=== PATIENT | male | born 1950 | race Caucasian/White ===

== ENCOUNTER 2021-08-30 22:07 | Emergency (ER) | payer OTHER ==
--- NOTE | 2021-08-30 22:25 | EDPHYS ---
Physician Documentation [facility] Name: Raphael Groves Sr Age: 71 yrs Sex: Male : 1950 Arrival Date: 08/30/2021 Time: 22:12 Bed 6 Private MD: ED Physician Edilson Sinclair HPI: 08/30 22:37 This 71 yrs old Male presents to ER via EMS with complaints of palpitations. ms3 22:25 71-year-old male with past medical history of hypertension, hypercholesterolemia, SVT ms3 presents via [facility] for increased heart rate and elevated blood pressure that began at 5 PM. EMS states administered 12 mg of adenosine IV with resolution of SVT. Patient denies pain. Patient denies nausea, vomiting. Patient states he has been dealing with SVT and had 4 episodes since June.. Historical: - Allergies: 22:22 No Known Allergies; aa9 - Home Meds: 22:22 prasugrel oral [Active]; Plavix Oral [Active]; meloxicam oral [Active]; atorvastatin aa9 oral [Active]; - PMHx: 22:24 Hypertensive disorder; Hypercholesterolemia; aa9 - PSHx: 22:24 Stented artery; aa9 - Immunization history:: Client reports having NOT received the Covid vaccine. - Social history:: Smoking status: Patient denies any tobacco usage or history of. ROS: 22:25 Constitutional: Negative for fever, and chills. Neck: Negative for injury, pain, and ms3 swelling. 22:25 Respiratory: Negative for shortness of breath, cough, wheezing, and pleuritic chest pain, Abdomen/GI: Negative for abdominal pain, nausea, vomiting, diarrhea, and constipation, MS/Extremity: Negative for injury and deformity, Skin: Negative for injury, rash, and discoloration, Psych: Negative for depression, anxiety, suicide ideation, homicidal ideation, and hallucinations. 22:25 Cardiovascular: Positive for palpitations. 22:25 All other systems are negative. Exam: 22:12 ECG was reviewed by the Attending Physician. ms3 22:25 Constitutional: This is a well developed, well nourished patient who is awake, alert, ms3 and in no acute distress. Eyes: Pupils equal round and reactive to light, extra-ocular motions intact. Lids and lashes normal. Conjunctiva and sclera are non-icteric and not injected. Periorbital areas with no swelling, redness, or edema. Neck: Trachea midline, no cervical lymphadenopathy. Supple, full range of motion without nuchal rigidity, or vertebral point tenderness. No Meningismus. Chest/axilla: Normal chest wall appearance and motion. Nontender with no deformity. Cardiovascular: Regular rate and rhythm with a normal S1 and S2. No gallops, murmurs, or rubs. Normal PMI, no JVD. No pulse deficits. Respiratory: Lungs have equal breath sounds bilaterally, clear to auscultation and percussion. No rales, rhonchi or wheezes noted. No increased work of breathing, no retractions or nasal flaring. Abdomen/GI: Soft, non-tender, with normal bowel sounds. No distension or tympany. No guarding or rebound. No evidence of tenderness throughout. Skin: Warm, dry with normal turgor. Normal color with no rashes, no lesions, and no evidence of cellulitis. MS/ Extremity: Pulses equal, no cyanosis. Neurovascular intact. Full, normal range of motion. Psych: Awake, alert, with orientation to person, place and time. Behavior, mood, and affect are within normal limits. Vital Signs: 22:18 BP 162 / 95; Pulse 88; Resp 26; Temp 97.9; Pulse Ox 100% on R/A; Weight 65.77 kg; aa9 Height 5 ft. 8 in. (172.72 cm); Pain 0/10; 22:26 BP 162 / 95; Pulse 88; Resp 26 S; Pulse Ox 100% on R/A; aa9 22:18 Body Mass Index 22.05 (65.77 kg, 172.72 cm) aa9 MDM: 22:13 Patient medically screened. ms3 22:25 Differential diagnosis: arrythmia. Data reviewed: vital signs, nurses notes, EKG, and ms3 as a result, I will discharge patient. Data interpreted: nurse monitoring: rate is 86 beats/min, rhythm is normal sinus rhythm, with no ectopy, Interpretation: normal rate, normal rhythm. Test interpretation: by ED physician or midlevel provider: ECG. Counseling: I had a detailed discussion with the patient and/or guardian regarding: the historical points, exam findings, and any diagnostic results supporting the discharge/admit diagnosis, the need for outpatient follow up, to return to the emergency department if symptoms worsen or persist or if there are any questions or concerns that arise at home. Refusal of service: The patient/guardian displays adequate decision making capability and despite a detailed discussion of alternatives, benefits, risks, and consequences refuses: Admission to the hospital for further work-up and treatment, all lab tests, all X-rays. ED course: On reevaluation patient is improved, alert and oriented x4, in no apparent distress, nontoxic-appearing, speaking full sentences, ambulatory in emergency department. Discussed labs, CXR, observation and patient declines.. 08/30 22:14 Order name: EKG; Complete Time: 22:14 ms3 08/30 22:14 Order name: EKG - Nurse/Tech; Complete Time: : ms3 EC:12 Rate is 86 beats/min. Rhythm is regular. QRS Maljamar is Normal. MO interval is normal. ms3 Clinical impression: NSR w/ Non-specific ST/T Changes. Interpreted by me. Reviewed by me. Administered Medications: No medications were administered Disposition Summary: 08/30/21 22:25 Discharge Ordered Location: Home ms3 Condition: Stable ms3 Diagnosis - Supraventricular tachycardia ms3 Followup: ms3 - With: Private Physician - When: 1 - 2 days - Reason: Re-evaluation by your physician Discharge Instructions: - Discharge Summary Sheet ms3 - Chemical Cardioversion ms3 - Supraventricular Tachycardia, Adult, [id number] ms3 Forms: - Medication Reconciliation Form ms3 - Thank You Letter ms3 - Antibiotic Education ms3 - Prescription Opioid Use ms3 Signatures: Edilson Sinclair DO DO ms3 Nayla Phipps, RN RN aa9
--- NOTE | 2021-08-30 22:25 | ER ---
Nurse's Notes [facility] Name: Raphael Groves Sr Age: 71 yrs Sex: Male : 1950 Arrival Date: 08/30/2021 Time: 22:12 Bed 6 Private MD: Diagnosis: Supraventricular tachycardia Presentation: 08/30 22:18 Chief complaint: EMS states: heart palpitations that began at 4pm today. Coronavirus aa9 screen: At this time, the client does not indicate any symptoms associated with coronavirus-19. Coronavirus screen: Vaccine status: Patient reports being unvaccinated. Ebola Screen: No symptoms or risks identified at this time. Initial Sepsis Screen: Does the patient meet any 2 criteria? No. Patient's initial sepsis screen is negative. Does the patient have a suspected source of infection? No. Patient's initial sepsis screen is negative. Risk Assessment: Do you want to hurt yourself or someone else? Patient reports no desire to harm self or others. Onset of symptoms was August 30, 2021 at 16:00. Care prior to arrival: Medication(s) given: Adenosine, 12 mg, IV initiated. 18 GA, in the left antecubital area. 22:18 Method Of Arrival: EMS: [facility] aa9 22:18 Acuity: MAHESH 3 aa9 Triage Assessment: 22:26 General: Appears in no apparent distress. comfortable, Behavior is calm, cooperative. aa9 Pain: Denies pain. Historical: - Allergies: 22:22 No Known Allergies; aa9 - Home Meds: 22:22 prasugrel oral [Active]; Plavix Oral [Active]; meloxicam oral [Active]; atorvastatin aa9 oral [Active]; - PMHx: 22:24 Hypertensive disorder; Hypercholesterolemia; aa9 - PSHx: 22:24 Stented artery; aa9 - Immunization history:: Client reports having NOT received the Covid vaccine. - Social history:: Smoking status: Patient denies any tobacco usage or history of. Screenin:25 Abuse screen: Denies threats or abuse. Denies injuries from another. Nutritional aa9 screening: No deficits noted. Tuberculosis screening: No symptoms or risk factors identified. Fall Risk None identified. Vital Signs: 22:18 BP 162 / 95; Pulse 88; Resp 26; Temp 97.9; Pulse Ox 100% on R/A; Weight 65.77 kg; aa9 Height 5 ft. 8 in. (172.72 cm); Pain 0/10; 22:26 BP 162 / 95; Pulse 88; Resp 26 S; Pulse Ox 100% on R/A; aa9 22:18 Body Mass Index 22.05 (65.77 kg, 172.72 cm) aa9 ED Course: 22:12 Patient arrived in ED. ds4 22:13 Edilson Sinclair DO is Attending Physician. ms3 22:22 Triage completed. aa9 22:25 Patient has correct armband on for positive identification. aa9 22:26 Arm band placed on. aa9 22:29 Nayla Phipps, RN is Primary Nurse. aa9 22:46 No provider procedures requiring assistance completed. IV discontinued, intact, aa9 bleeding controlled, No redness/swelling at site. Pressure dressing applied. Administered Medications: No medications were administered Medication: 22:47 VIS not applicable for this client. aa9 Outcome: 22:25 Discharge ordered by . ms3 22:46 Discharged to home ambulatory. aa9 22:46 Condition: stable 22:46 Discharge instructions given to patient, Instructed on discharge instructions, follow up and referral plans. Demonstrated understanding of instructions, follow-up care. 22:53 Patient left the ED. aa9 Signatures: Franck Johnson ds4 Edilson Sinclair DO DO ms3 Nayla Phipps, RN RN aa9
[2021-08-30 23:45] VITALS: BP 162/95; TEMP 97.9; O2SAT 100
--- NOTE | 2021-08-31 09:26 | EKG ---
Test Date: 2021-08-30 Test Time: 22:12:50 Social Science Teacher: KATLYN MEASUREMENT RESULTS: Intervals: Rate: 86 SC: 142 QRSD: 82 QT: 402 QTc: 481 [place]: P: 64 SC: 142 QRS: -57 T: 112 INTERPRETIVE STATEMENTS: Sinus rhythm with occasional premature ventricular complexes Possible Left atrial enlargement Left anterior fascicular block Left ventricular hypertrophy Cannot rule out Septal infarct, age undetermined Abnormal ECG No previous ECG available for comparison Electronically Signed On 08-31-21 09:24:40 CDT by Anatoly Kumar
== END 2021-08-30 22:53 | disposition home or self-care (01) ==
LOC: ER 22:07
DX: I47.1 Supraventricular tachycardia (principal); I10 Essential (primary) hypertension; E78.00 Pure hypercholesterolemia, unspecified
CPT/HCPCS: 93005; 99283

== ENCOUNTER 2022-11-30 20:08 | Emergency (ER) | payer OTHER ==
--- OUTSIDE RECORDS SUMMARY | 2022-11-30 20:12 | XMS REPORT | Continuity of Care Document ---
:1950 Author Organization [facility] t Address [address]. [place]. [address] [place] [address] Care Team Providers Name Role Phone Evon Dempsey MD Primary Care Physician Maximilian Adams Attending Clinician Unavailable Dameon Quintero MD Attending Clinician MARIANGEL BATISTA Attending Clinician Unavailable Caitlin Real Attending Clinician Unavailable Provider, Unknown Attending Clinician Unavailable MD DAMEON QUINTERO Attending Clinician Unavailable Kemal Car MA Attending Clinician Unavailable Jayna Stratton Admitting Clinician Unavailable DAMEON QUINTERO Admitting Clinician Unavailable MD DAMEON QUINTERO Admitting Clinician Unavailable Payers Payer Name Policy Type Policy Number Effective Date Expiration Date S ource Problems Condition Condition Condition Status Onset Resolution Last Treating Co mments Source Name Details Category Date Date Treatment Clinician Date Abnormal Abnormal Disease Active [facility] EKG EKG 08-12 00:00: Hospita 00 l Angina Angina Disease Active [facility] pectoris pectoris 08-12 00:00: Hospita 00 l Essential Essential Disease Active Met [facility] hypertensi hypertensi 08-12 st on on 00:00: Hospita 00 l Allergies, Adverse Reactions, Alerts Allergy Allergy Status Severity Reaction(s) Onset Inactive Treating Comm ents Source Name Type Date Date Clinician No Known DA Active U [facility] No Known DA Active U 2016-0 [facility]ergie 8-18 [facility] Family History Family Member Diagnosis Comments Start Date Stop Date Source Natural mother Heart block [facility] Social History Social Habit Start Date Stop Date Quantity Comments Source [facility] Alcohol intake 2021-09-18 2021-09-18 Current drinker [facility] 00:00:00 00:00:00 of alcohol Hospital (finding) History of Social 2021-09-18 2021-09-[address] function 00:00:00 00:00:00 Hospital Tobacco use and 2020-08-12 2020-08-12 User of [facility] exposure 00:00:00 00:00:00 smokeless Hospital tobacco Sex Ass[birth year] [facility] 00:00:00 00:00:00 Hospital Smoking Status Start Date Stop Date Source Never smoked tobacco [facility] Medications Ordered Filled Start Stop Current Ordering Indication Dosage Frequency Signature Comments Components Source Medication Medication Date Date Medication? Clinician (SIG) Name Name metoprolol 2021-02 Yes TAKE ONE Met hodi tartrate 1-[address] (LOPRESSOR) 00:00: MOUTH Hospi ta 50 mg 00 TWICE A l tablet DAY metoprolol 2021-02 Yes TAKE ONE Met [facility]odi tartrate 1-[address] (LOPRESSOR) 00:00: MOUTH Hospi ta 50 mg 00 TWICE A l tablet DAY nitroglycer 2021-02 Yes DISSOLVE 1 [facility] in 0-[address] (NITROSTAT) 00:00: TONGUE FOR Hospita 0.4 MG SL 00 CHEST PAIN l tablet - IF PAIN REMAINS AFTER 5 MIN, CALL 911 AND REPEAT DOSE. MAX 3 TABS IN 15 MINUTES nitroglycer 2021-02 Yes DISSOLVE 1 Method[facility] in 0-[address] (NITROSTAT) 00:00: TONGUE FOR Hospita 0.4 MG SL 00 CHEST PAIN l tablet - IF PAIN REMAINS AFTER 5 MIN, CALL 911 AND REPEAT DOSE. MAX 3 TABS IN 15 MINUTES aspirin Yes 81mg QD Take 1 [facility] (Enteric 8-12 tablet (81 st Coated 00:00: mg total) Hospit a Aspirin) 81 00 by mouth l MG enteric daily. coated tablet aspirin Yes 81mg QD Take 1 [facility] (Enteric - tablet (81 st Coated 00:00: mg total) Hospit a Aspirin) 81 00 by mouth l MG enteric daily. coated tablet atorvastati 2022- No 40mg QD Take 1 Met hodi n (LIPITOR) 09-18 tablet (40 s t 40 mg 00:00: 04:59 mg total) Hospit a tablet 00 :00 by mouth l daily. atorvastati 2022- No 40mg QD Take 1 Met hodi n (LIPITOR) 09-18 tablet (40 s t 40 mg 00:00: 04:59 mg total) Hospit a tablet 00 :00 by mouth l daily. metoprolol 2021- No 50mg Q.5D Take 1 Meth bebo tartrate 09-08-10 tablet (50 st (LOPRESSOR) 00:00: 00:00 mg total) Hospita 50 mg 00 :00 by mouth 2 l tablet (two) times a day. metoprolol No 50mg Q.5D Take 1 Meth bebo tartrate 09-0810 tablet (50 st (LOPRESSOR) 00:00: 00:00 mg total) Hospita 50 mg 00 :00 by mouth 2 l tablet (two) times a day. aspirin 2020- No 81mg QD Take 1 [facility] (ECOTRIN) 09-10 tablet (81 st 81 MG 00:00: 04:59 mg total) Hospit a enteric 00 :00 by mouth l coated daily for tablet 30 days. prasugreL 2020- No 10mg QD Take 1 Metho di (EFFIENT) 09-10 tablet (10 st 10 mg 00:00: 04:59 mg total) Hospit a tablet 00 :00 by mouth l daily for 30 days. prasugreL 2020- No 10mg QD Take 1 Metho di (EFFIENT) 08-15 tablet (10 st 10 mg 00:00: 00:00 mg total) Hospit a tablet 00 :00 by mouth l daily for 30 days. aspirin 2020- No 81mg QD Take 1 [facility] (ECOTRIN) 08-14 tablet (81 st 81 MG 16:25: 00:00 mg total) Hospit a enteric 39 :00 by mouth l coated daily. tablet atorvastati No 80mg QD Take 1 Met hodi n (LIPITOR) 08-14 tablet (80 s t 80 MG 00:00: 04:59 mg total) Hospit a tablet 00 :00 by mouth l nightly for 30 days. amLODIPine No 5mg QD Take 1 Meth bebo (NORVASC) 5 08-14 tablet (5 st mg tablet 00:00: 04:59 mg total) Ho spita 00 :00 by mouth l daily for 30 days. aspirin No 81mg QD Take 1 [facility] (ECOTRIN) 08-14 tablet (81 st 81 MG 00:00: 00:00 mg total) Hospit a enteric 00 :00 by mouth l coated daily for tablet 30 days. nitroglycer 2021- No 1 under Me thodi in 08-[address] (NITROSTAT) 00:00: 00:00 as needed Hospita 0.4 MG SL 00 :00 for l tablet angina, may repeat q5mins for up three doses metoprolol 2021- No 50mg Q.5D Take 1 Meth bebo tartrate 08-12 tablet (50 st (LOPRESSOR) 00:00: 04:59 mg total) Hospita 50 mg 00 :00 by mouth 2 l tablet (two) times a day. nitroglycer 2021- No 1 under Me thodi in 08-[address] (NITROSTAT) 00:00: 04:59 as needed Hospita 0.4 MG SL 00 :00 for l tablet angina, may repeat q5mins for up three doses clopidogreL No 75mg QD Take 1 Met hodi (PLAVIX) 75 08-12 tablet (75 s t mg tablet 00:00: 00:00 mg total) Ho spita 00 :00 by mouth l daily. Vital Signs Vital Name Observation Time Observation Value Comments Source Heart rate 2020-09-10 20:30:00 62 /min [facility] Res[facility] rate 2020-09-10 20:30:00 26 /min [facility] Oxygen saturation in 2020-09-10 20:30:00 98 /min [facility] Arterial blood by Pulse oximetry Systolic blood 2020-09-10 20:15:00 169 mm[Hg] [facility] pressure Diastolic blood 2020-09-10 20:15:00 82 mm[Hg] [facility] pressure Body temperature 2020-09-10 13:34:00 35.72 Pascale [facility] Body height 2020-09-10 13:34:00 171.5 cm [facility] Body weight 2020-09-10 13:34:00 77.474 kg [facility] BMI 2020-09-10 13:34:00 26.36 kg/m2 [facility] Procedures Procedure Date / Time Performing Clinician Source Performed ECG PRE/POST OP 2020-09-10 16:40:08 Dameon Quintero spital CV PCI 2020-09-10 16:09:08 Dameon Quintero spital ACTIVATED CLOTTING TIME 2020-09-10 15:49:00 Dameon Quintero [facility] COVID-19 QUALITATIVE 2020-09-05 14:14:00 [facility] HC COMPLETE BLD COUNT 2020-09-05 14:14:00 Dameon Quintero [facility] W/AUTO DIFF COMPREHENSIVE METABOLIC 2020-09-05 14:14:00 Dameon Quintero [facility] PANEL PROTHROMBIN TIME WITH INR 2020-09-05 14:14:00 Dameon Quintero [facility] ESTIMATED GFR 2020-09-05 14:14:00 Dameon Quintero spital POC GLUCOSE 2020-08-14 12:54:00 Dameon Quintero spital POC GLUCOSE 2020-08-14 04:34:00 Dameon Quintero spital ECG 12-LEAD 2020-08-14 01:05:22 Dameon Quintero spital IVUS CORONARY 2020-08-14 00:36:29 Dameon Quintero spital ACTIVATED CLOTTING TIME 2020-08-13 23:56:00 Dameon Quintero [facility] ECG 12-LEAD 2020-08-12 19:39:47 Damoen Quintero spital COVID-19 QUALITATIVE 2020-08-12 19:27:00 Dameon Quintero [facility] RT-PCR PROTHROMBIN TIME WITH INR 2020-08-12 19:27:00 Dameon Quintero [facility] COMPREHENSIVE METABOLIC 2020-08-12 19:27:00 Dameon Quintero [facility] PANEL HC COMPLETE BLD COUNT 2020-08-12 19:27:00 Dameon Quintero [facility] W/AUTO DIFF PARTIAL THROMBOPLASTIN 2020-08-12 19:27:00 Dameon Quintero [facility] TIME (PTT) ESTIMATED GFR 2020-08-12 19:27:00 Dameon Quintero spital ECG 12-LEAD 2020-08-12 14:42:09 [facility] Care Planned Activity Planned Date Details Comments Source Future Scheduled 2022-11-24 Screening for [facility] Test 05:29:36 malignant neoplasm of colon (procedure) [code = 096892727] Future Scheduled 2022-11-24 Screening for [facility] Test 05:29:36 malignant neoplasm of colon (procedure) [code = 681755010] Future Scheduled 2022-11-24 Screening for [facility] Test 05:29:36 malignant neoplasm of colon (procedure) [code = 273801007] Future Scheduled 2022-11-24 COVID-19 VACCINE (#1) [facility] Test 05:29:36 [code = COVID-19 VACCINE (#1)] Future Scheduled 2022-11-24 65+ PNEUMOCOCCAL [facility] Test 05:29:36 VACCINE (1 - PCV) [code = 65+ PNEUMOCOCCAL VACCINE (1 - PCV)] Future Scheduled 2022-11-24 Hepatitis C screening [facility] Test 05:29:36 (procedure) [code = 609706663] Future Scheduled 2022-11-24 Screening for [facility] Test 05:29:36 malignant neoplasm of colon (procedure) [code = 988890636] Future Scheduled 2022-11-24 Screening for [facility] Test 05:29:36 malignant neoplasm of colon (procedure) [code = 030527033] Future Scheduled 2022-11-24 SHINGLES VACCINES (1 Met [facility] Test 05:29:36 of 2) [code = SHINGLES VACCINES (1 of 2)] Future Scheduled 2022-11-24 RSV VACCINES > 60 YR Met [facility] Test 05:29:36 (1 - 1-dose 60+ series) [code = RSV VACCINES > 60 YR (1 - 1-dose 60+ series)] Future Scheduled 2022-11-24 INFLUENZA VACCINE (#1) [facility] Test 05:29:36 [code = INFLUENZA VACCINE (#1)] Future Scheduled 2022-10-08 Screening for [facility] Test 07:26:27 malignant neoplasm of colon (procedure) [code = 456281693] Future Scheduled 2022-10-08 Screening for [facility] Test 07:26:27 malignant neoplasm of colon (procedure) [code = 660744827] Future Scheduled 2022-10-08 Screening for [facility] Test 07:26:27 malignant neoplasm of colon (procedure) [code = 387408364] Future Scheduled 2022-10-08 COVID-19 VACCINE (#1) [facility] Test 07:26:27 [code = COVID-19 VACCINE (#1)] Future Scheduled 2022-10-08 65+ PNEUMOCOCCAL [facility] Test 07:26:27 VACCINE (1 - PCV) [code = 65+ PNEUMOCOCCAL VACCINE (1 - PCV)] Future Scheduled 2022-10-08 Hepatitis C screening [facility] Test 07:26:27 (procedure) [code = 692885457] Future Scheduled 2022-10-08 Screening for [facility] Test 07:26:27 malignant neoplasm of colon (procedure) [code = 323313800] Future Scheduled 2022-10-08 Screening for [facility] Test 07:26:27 malignant neoplasm of colon (procedure) [code = 709183043] Future Scheduled 2022-10-08 SHINGLES VACCINES (1 Met [facility] Test 07:26:27 of 2) [code = SHINGLES VACCINES (1 of 2)] Future Scheduled 2022-10-08 INFLUENZA VACCINE (#1) [facility] Test 07:26:27 [code = INFLUENZA VACCINE (#1)] Future Scheduled 2021-01-28 COVID-19 VACCINE (1) [facility] Test 03:32:40 [code = COVID-19 VACCINE (1)] Future Scheduled 2021-01-28 65+ [facility]UMOCOCCAL [facility] Test 03:32:40 VACCINE (1 of 2 - PPSV23) [code = 65+ PNEUMOCOCCAL VACCINE (1 of 2 - PPSV23)] Future Scheduled 2021-01-28 Hepatitis C screening [facility] Test 03:32:40 (procedure) [code = 345317732] Future Scheduled 2021-01-28 COLONOSCOPY SCREENING [facility] Test 03:32:40 [code = COLONOSCOPY SCREENING] Future Scheduled 2021-01-28 SHINGLES VACCINES (#1) [facility] Test 03:32:40 [code = SHINGLES VACCINES (#1)] Future Scheduled 2021-01-28 INFLUENZA VACCINE [facility] Test 03:32:40 [code = INFLUENZA VACCINE] Encounters Start End Encounter Admission Attending Care Care Encounter Source Date/Time Date/Time Type Type Clinicians Facility Department ID 2021-09-25 Outpatient Angie, PULSE PULSE [id number] Pulse 08:45:02 Maximilian 2021-09-24 Outpatient PULSE PULSE [id number] Pulse 14:08:01 2021-09-16 Outpatient PULSE PULSE [id number] Pulse 09:41:02 2021-09-11 Outpatient PULSE PULSE [id number] Pulse 09:11:03 2021-12-17 2021-12-17 Refmary Quintero, 1.2.840.1 [id number] Methodi 00:00:00 00:00:00 Dameon Marshall [address]603.1.[address] 3.430.2.7 Hospit a .3.703644 l .8 2021-12-17 2021-12-17 Bernardo Quintero, 1.2.840.1 [id number] Methodi 00:00:00 00:00:00 Dameon Marshall [address]14.1.[address] 3.430.2.7 Hospit a .3.951699 l .8 2021-11-14 2021-11-14 Bernardo Quintero 1.2.840.1 [id number] Methodi 00:00:00 00:00:00 Dameon R[address]388.1.[address] 3.430.2.7 Hospit a .3.120435 l .8 2021-09-18 2021-09-18 Emergency E LYNNE, MHBL MHBL 7506 [facility]BL 17:35:00 22:45:00 [facility] 2021-09-18 2021-09-18 Outpatient [facility] [id number] [address] [place] [address] 00:00:00 00:00:00 DAMEON [address] 2021-06-23 2021-06-23 Inpatient EM Farhan, [facility] [id number] [facility] 14:41:00 18:23:[id number] [facility] 2021-06-23 2021-06-23 Inpatient EM Farhan, [facility] [id number] [facility] 14:41:00 18:23:[address] [facility] 2020-09-10 2020-09-10 [facility] 1.2.840.1 [id number] Methodi 08:18:00 15:50:00 Encounter Dameon R. 47989.1.[address] 3.430.2.7 Hospit a .3.084299 l .8 2020-09-10 2020-09-10 [facility] 1.2.840.1 [id number] Methodi 09:20:00 11:10:00 Dameon R. 41245.1.[address] 3.430.2.7 Hospit a .3.105184 l .8 2020-09-09 2020-09-09 Documentat [facility], 1.2.840.1 [id number] Methodi 00:00:00 00:00:00 ion Unknown 19978.1.[address] 3.430.2.7 Hospit a .3.285286 l .8 2020-09-05 2020-09-05 [facility] Doris 1.2.840.1 [id number] Methodi 09:05:22 09:10:22 Dameon R. [address]59.1.[address] 3.430.2.7 Hospit a .3.813301 l .8 2020-09-05 2020-09-05 Travel 1.2.840.1 1.2.335.766 [id number] Methodi 00:00:00 00:00:[address] 3.430.2.7 0.2.7.3.698 Ho spita .3.283341 084.8 l .8 2020-08-29 2020-08-29 [place] Doris 1.2.840.1 [id number] [id number] Methodi 00:00:00 00:00:00 Dameon Marshall [address]245.1.[address] 3.430.2.7 Hospit a .3.441611 l .8 2020-08-20 2020-08-20 Orders Kemal Car 1.2.840.1 [id number] [id number] Methodi 00:00:00 00:00:[address] 3.430.2.7 Hospit a .3.171778 l .8 2020-08-18 2020-08-18 Travel 1.2.840.1 1.2.550.596 6845 [id number] Methodi 00:00:00 00:00:[address] 3.430.2.7 0.2.7.3.698 Ho spita .3.704942 084.8 l .8 2020-08-13 2020-08-14 [facility] Doris, 1.2.840.1 [id number] Methodi 12:09:00 17:21:00 Encounter Dameon Marshall 96448.1.[address] 3.430.2.7 Hospit a .3.975693 l .8 2020-08-13 2020-08-13 [facility] Doris 1.2.840.1 [id number] 0899 Methodi 17:57:00 19:17:00 Dameon Marshall [address]51.1.[address] 3.430.2.7 Hospit a .3.785552 l .8 2020-08-13 2020-08-13 Travel 1.2.840.1 1.2.679.420 [id number] [id number] Methodi 00:00:00 00:00:[address] 3.430.2.7 0.2.7.3.698 Ho spita .3.611516 084.8 l .8 2020-08-12 2020-08-12 Lab Doris, 1.2.840.1 [id number] Methodi 14:10:49 14:15:49 Dameon Marshall [address]361.1.[address] 3.430.2.7 Hospit a .3.433570 l .8 2020-08-12 2020-08-12 Luis Daniel Quintero 1.2.840.1 [id number] 3530 Methodi 09:22:31 13:35:05 Visit Dameon Marshall 75608.1.[address] 3.430.2.7 Hospit a .3.466807 l .8 2020-08-12 2020-08-12 Orders Kemal Car 1.2.840.1 [id number] [id number] Methodi 00:00:00 00:00:[address] 3.430.2.7 Hospit a .3.790572 l .8 2020-08-12 2020-08-12 Travel 1.2.840.1 1.2.937.471 7070 [id number] Methodi 00:00:00 00:00:[address] 3.430.2.7 0.2.7.3.698 Ho spita .3.698002 084.8 l .8 2020-08-04 2020-08-04 Travel 1.2.840.1 1.2.315.578 2033 [id number] Methodi 00:00:00 00:00:[address] 3.430.2.7 0.2.7.3.698 Ho spita .3.666393 084.8 l .8 2020-03-10 2020-03-10 Outpatient [facility] PDPFFOS XXM [facility] 00:00:00 00:00:00 [facility]-[id number] Results Test Description Test Time Test Comments Results Result Comments Source LIPID PROFILE (CORONARY RISK) 2021-06-23 18:21:00 Test Item Value Reference Range Interpretation Comme nts TRIGLYCERIDES (test code = TRIG) 96 mg/dL 20-150 N CHOLESTEROL (test code = CHOL) 127 mg/dL 0-200 N CHOLESTEROL/HDL RATIO (test code 2.0 RATIO 0-4.9 N RISK ASSOCIATED WITH CHOL/HDL = CHOLHDL) RATIOS: Risk Ma le Female1/2 AVERAGE 3.43 3. 27AVERAGE 4.97 4.442X AVERAGE 9.55 7.053X AVERAGE 23.39 11.04 REFERENCE VALUE IS RELATE D TO RISK LEVELS ASRECOMMENDED B Y THE BETTYE. HEART, LUNG, AND BLOOD INST. HDL CHOLESTEROL (test code = HDL) 46 mg/dL 40-60 N LIPOPROTEIN LDL (test code = LDL) 74 mg/dL 100-129 L Refer ence Interval: mg/dL mmol/L--------- -Optimal <100 < 2.6Near/above optimal 100-129 2.6-3.3Borderli ne High 130-159 3.4-4.1High 160 -189 4.1-4.9Very High >=190 >=4 .9========= This LDL result is a direct measurement.=== ====== THYROID PROFILE [id number] 18:21:00 Test Item Value Reference Range Interpretation Comments T3 UPTAKE (test code = 35.0 % 30.0-40.0 N T3UP) T4 (THYROXINE) (test 6.3 ug/dL 4.5-13.9 N code = T4) T7 (FREE THYROXINE 2.20 FTI 1.3-5.1 N INDEX) (test code = T7) THYROID STIMULATING 0.888 uIU/mL 0.36-3.74 N TSH REFE RENCE HORMONE (test code = RANGES: EUTHYROID: TSH) 0.35 - 4.3 mIU/ mL HYPO : > 5.5 mI U/mL HYPER : < 0.35 mIU/mL [id number] 18:16:00 Test Item Value Reference Range Interpretation Comments TROPONIN-HS (test 66.760 pg/mL 0-45 H CAUTION: U nits of the code = TROPI) current test m ethodology (pg/mL)differ f rom the prior test meth odology (ng/mL) by a fa ctorof 1000. COMMENTS TO WELL SERVICING RIG OPERATOR: COLLECT 3 HOURS AFTER PREVIOUS SAMPLEBASIC METABOLIC [id number] 14:21:00 Test Item Value Reference Range Interpretation Comments SODIUM (test code = 140 mmol/L 136-145 N NA) POTASSIUM (test code 4.1 mmol/L 3.5-5.1 N = K) CHLORIDE (test code 106.0 mmol/L 98-107 N = CL) CARBON DIOXIDE (test 25.0 mmol/L 21-32 N code = CO2) ANION GAP (test code 13.1 10-20 N = GAP) GLUCOSE (test code = 105 mg/dL 74-106 N GLU) BLOOD UREA NITROGEN 20 mg/dL 7-18 H (test code = BUN) GLOMERULAR 55 mL/min See_Comment Estimated GFR b y FILTRATION RATE using Modifi ed MDRD (test code = GFR) formula.Ch ronic kidney disease is defined as eith er kidney damageor GFR <60 mL/min/1.73 m2 for >3 months. [Automated mess age] The system [employer] generated this result transmitted ref erence range: >=60. Th e reference range was not used to int erpret this result as normal/abnormal . CREATININE (test 1.30 mg/dL 0.7-1.3 N code = CREAT) BUN/CREATININE RATIO 14.9 10-20 N (test code = BUN/CREA) CALCIUM (test code = 9.2 mg/dL 8.5-10.1 N CA) [id number] 14:21:00 Test Item Value Reference Range Interpretation Comments TROPONIN-HS (test 44.250 pg/mL 0-45 N CAUTION: U nits of the code = TROPI) current test m ethodology (pg/mL)differ f rom the prior test meth odology (ng/mL) by a fa ctorof 1000. CBC W/O [id number] 14:03:00 Test Item Value Reference Range Interpretation Comments WHITE BLOOD CELL (test code = 9.1 K/mm3 4.5-12.5 N WBC) RED BLOOD CELL (test code = 5.05 mill/mm3 4.0-5.8 N RBC) HEMOGLOBIN (test code = HGB) 16.1 gram/dL 13.0-17.5 N HEMATOCRIT (test code = HCT) 46.6 % 42.0-52.0 N MEAN CELL VOLUME (test code = 92.3 fL 80-98 N MCV) MEAN CELL HGB (test code = MCH) 31.9 picogram 27.0-33.0 N MEAN CELL HGB CONCETRATION 34.5 gram/dL 33.0-36.0 N (test code = MCHC) RED CELL DISTRIBUTION WIDTH 13.5 % 11.6-16.2 N (test code = RDW) PLATELET COUNT (test code = 243 K/mm3 150-450 N PLT) MEAN PLATELET VOLUME (test code 10.4 fL 6.7-11.0 N = MPV) - XR CHEST 1 [id number] 12:59:00 [facility]Name: PAIGE FERRO : 1950 Sex: M FAX: Fernando Miller MD [phone] [place]: St: REG Name: PAIGE FERRO [facility] : 1950 Age/S: 71/M [address] [facility] Unit #: [id number] Loc: [place] [address] Phys: Fernando Miller MD Acct: [id number] Dis Date: Status: REG ER PHONE #: [phone] Exam Date: 06/23/2021 1305 FAX #: [phone] Reason: CHEST PAIN EXAMS: CPT CODE: [id number] XR CHEST 1 V 45576 HISTORY: Chest pain. COMPARISON: None available. Location: [facility]. No acute infiltrates, effusion or congestion is noted. Calcified granuloma in the right midlung. Mild cardiomegaly. Levoscoliosis. IMPRESSION: No acute infiltrates, effusion or congestion. at 9066 Reported and signed by: Alexey Boone M.D. CC: Fernando Miller MD Technologist: Delicia Gallardo RT(R) Trnscrd Date/Time/By: 06/23/2021 (8307) : By: [email or web address] Orig Print D/T: S: 06/23/2021 (6676) PAGE 1 Signed ReportECG Pre/Post [id number] 05:34:06 Test Item Value Reference Range Interpretation Comments Ventricular rate (test code = 253) Atrial rate (test code = 255) [place] interval (test code = 266) QRSD interval (test code = 260) QT interval (test code = 264) QTC interval (test code = 265) P axis 1 (test code = 267) QRS axis 1 (test code = 268) T wave axis (test code = 270) EKG impression (test Sinus bradycardia with code = 273) premature atrial complexes-Left axis deviation-Septal infarct , age undetermined-T wave abnormality, consider anterolateral ischemia-Abnormal ECG-In automated comparison with ECG of 13-AUG-2020 20:05,-Septal infarct is now present-T wave inversion now evident in Anterolateral leads- [facility] [id number] 15:55:19 Test Item Value Reference Range Interpretation Comments Activated clotting time See_Comment H Oper ator Name: (test code = 5298) Le Mathis ID: [id number] [Autom ated message] The sy stem which generated this result transmit trudy reference range : 96 - 152 sec. The re ference range was not u sed to interpret this result as normal/abnor mal. Lab Interpretation Abnormal (test code = 01867-8) [facility] qualitative [id number] 19:39:56 Test Item Value Reference Range Interpretation Comments Interpretation (test Negative results do code = 4350409) not preclude 2019-nCoV infection and should not be used as the sole basis for treatment or other patient management decisions. Negative results must be combined with clinical observations, patient history, and epidemiological information. COVID-19 qualitative Not-Detected Not-Detected RT-PCR result (test code = 31375-9) COVID-19 qualitative See link below for C ase Number: RT-PCR (test code = PDF Lab Report [id number]) [facility] [Presence] in Respiratory specimen by PERLA with probe [id number] 14:39:02 Test Item Value Reference Range Interpretation Comments SARS-CoV-2 (COVID-19) RNA Not detected Not-Detected [Presence] in Respiratory specimen by PERLA with probe detection (test code = 48043-7) Whether patient is employed in a healthcare setting (test code = 87458-5) Whether the patient has symptoms related to condition of interest (test code = 84643-2) Patient was hospitalized because of this condition (test code = 05324-1) Whether the patient was admitted to intensive care unit (ICU) for condition of interest (test code = 89896-9) Whether patient resides in a congregate care setting (test code = 60460-4) ODEN LUIS FELIPE [facility] [place] [place] [id number] 12:55:52 Test Item Value Reference Range Interpretation Comments POC glucose (test code 109 mg/dL 65-99 H [employer] lewis Name: = [id number]) Giorgio Sanches ID: [id number] able: No Action Neede d Lab Interpretation Abnormal (test code = 83939-8) [facility] 12 [id number] 01:34:54 Test Item Value Reference Range Interpretation Comments Ventricular rate (test code = 253) Atrial rate (test code = 255) [place] interval (test code = 266) QRSD interval (test code = 260) QT interval (test code = 264) QTC interval (test code = 265) P axis 1 (test code = 267) QRS axis 1 (test code = 268) T wave axis (test code = 270) EKG impression (test Sinus bradycardia with code = 273) premature supraventricular complexes-Left axis deviation-Moderate voltage criteria for LVH, may be normal variant-Prolonged QT-Abnormal ECG-In automated comparison with ECG of 12-AUG-2020 14:39,-premature supraventricular complexes are now present- Bahai [id number]-[id number] (COVID-19) RNA [Presence] in Respiratory specimen by PERLA with probe [id number] 20:54:00 Test Item Value Reference Range Interpretation Comments SARS-CoV-2 (COVID-19) RNA Not detected Not-Detected [Presence] in Respiratory specimen by PERLA with probe detection (test code = 00553-9) Whether patient is employed in a healthcare setting (test code = 08612-4) Whether the patient has symptoms related to condition of interest (test code = 58283-5) Patient was hospitalized because of this condition (test code = 56721-2) Whether the patient was admitted to intensive care unit (ICU) for condition of interest (test code = 23820-0) Whether patient resides in a congregate care setting (test code = 09102-6) WOODWARD LUIS FELIPE JEREMIAH
[2022-11-30] MEDS ORDERED: ONDANSETRON 4 MG/2 ML VIAL ONE (21:11)
[2022-11-30] MEDS ORDERED: NA CHLORIDE 0.9% 1,000 ML ONE (21:11)
[2022-11-30] MEDS ORDERED: CODEINE 30MG/APAP 300MG TAB ONE (21:11)
[2022-11-30] MEDS ORDERED: KETOROLAC 30 MG/ML INJ ONE (21:11)
[2022-11-30 21:33] LABS: Absolute Lymphocytes (CBC) 2.1 K/uL (0.7-4.9); Hematocrit 46.3 % (39.6-49.0); Lymphocytes % 28.1 % (15.3-44.8); MCV 94.8 fL (80-100); MPV 9.3 fL (7.6-11.3); Platelets 147 thou/uL (152-406); RBC Red Blood Cell Count 4.88 M/uL (4.33-5.43)
[2022-11-30 21:42] LABS: Specific Gravity 1.025 (1.005-1.030); Urine Bacteria None Seen /HPF (<20); Urine Bilirubin NEGATIVE (Negative); Urine Blood Negative (Negative); Urine Clarity Clear (Clear); Urine Color Yellow (Yellow); Urine Glucose NEGATIVE (Negative); Urine Mucus Slight /HPF (None Seen); Urine Protein 1+ (Negative); Urine RBC <5 /HPF (None Seen); Urine Urobilinogen 1+ (Normal)
[2022-11-30 21:55] LABS: Albumin 3.2 g/dL (3.4-5.0); Bilirubin Total 0.4 mg/dL (0.2-1.0); C-Reactive Protein 22.2 mg/L (<3.00); Potassium 3.1 mEq/L (3.5-5.1); Protein, Total 7.4 g/dL (6.4-8.2); Thyroid Stimulating Hormone 0.867 uIU/mL (0.358-3.740)
--- NOTE | 2022-11-30 22:53 | RAD REPORT ---
EXAM DESCRIPTION: CT - Chest Abdomen Pelvis W Cont - 11/30/2022 10:18 pm CLINICAL HISTORY: unintentional weight loss COMPARISON: No comparisons TECHNIQUE: Thin axial CT images of the chest, abdomen, and pelvis, performed following intravenous a dministration 100 mL MultiHance. Multiplanar reformats were generated reviewed All CT scans are performed using dose optimization technique as appropriate and may include automated exposure control or mA/KV adjustment according to patient size. FINDINGS: The lungs are clear.Subpleural right upper lobe 5 millimeter granuloma, a benign finding.N o pleural or pericardial effusion.No intrathoracic adenopathy. The liver, spleen, pancreas, adrenal glands and kidneys are within normal limits. Multiple large gall stones near the gallbladder neck. Common bile duct is mildly prominent, measuring up to 8 millimeter, although with smooth tapering. No bowel obstruction, free air, free fluid or abscess. Normal appendix. Mildly prominent periportal lymph nodes, up to 12 millimeter in short axis. No worrisome osseous finding. IMPRESSION: Mildly prominent caliber of the common bile duct although with smooth tapering, measurin g 8 millimeter. This is nonspecific. Please correlate with bilirubin levels and pancreatic tumor catherine ers, and consider additional evaluation by endoscopy if there is concern for ampullary malignancy. Mildly prominent periportal lymph nodes, likely to be reactive. Cholelithiasis.
--- NOTE | 2022-11-30 23:35 | ER ---
Nurse's Notes [facility] Name: Raphael Groves Age: 72 yrs Sex: Male : 1950 Arrival Date: 11/30/2022 Time: 20:08 Bed 3 Private MD: Diagnosis: Viral infection, unspecified;Acute COVID-19, acute systemic viral illness, increased diameter of the common bile duct. Presentation: 11/30 20:32 Chief complaint: Patient states: not feeling well over the last 4 days. Pt states that cm10 he has had body aches, fevers and subjective fevers. Pt states that over the last 6 months he has had unexpected weight loss of 32lbs. Coronavirus screen: Vaccine status: Patient reports being unvaccinated. Client denies travel out of the [place] in the last 14 days. Ebola Screen: Patient denies travel to an Ebola-affected area in the 21 days before illness onset. No symptoms or risks identified at this time. Initial Sepsis Screen: Does the patient meet any 2 criteria? No. Patient's initial sepsis screen is negative. Does the patient have a suspected source of infection? No. Patient's initial sepsis screen is negative. Risk Assessment: Do you want to hurt yourself or someone else? Patient reports no desire to harm self or others. Onset of symptoms was November 30, 2022. 20:32 Method Of Arrival: Ambulatory cm10 20:32 Acuity: MAHESH 3 cm10 Historical: - Allergies: 20:34 No Known Allergies; cm10 - PMHx: 20:34 Hypercholesterolemia; Hypertensive disorder; cm10 - PSHx: 20:34 Stented artery; cm10 - Immunization history:: Adult Immunizations unknown. - Social history:: Smoking status: Patient denies any tobacco usage or history of. Patient uses street drugs, marijuana. - Family history:: not pertinent. Screenin:00 [facility] ED Fall Risk Assessment (Adult) History of falling in the last 3 months, nw1 including since admission No falls in past 3 months (0 pts) Confusion or Disorientation No (0 pts) Intoxicated or Sedated No (0 pts) Impaired Gait No (0 pts) Mobility Assist Device Used No (0 pt) Altered Elimination No (0 pt) Score/Fall Risk Level 0 - 2 = Low Risk Oriented to surroundings, Maintained a safe environment, Educated pt \T\ family on fall prevention, incl call for assistance when getting out of bed, Assessed \T\ reinforced patient's understanding of fall precautions, Provided non-skid footwear, Hourly rounding (assess needs \T\ fall precautionary measures) done, Used ambulatory aids as needed (educated on \T\ assisted with), Used gait belt as appropriate. Abuse screen: Denies threats or abuse. Denies injuries from another. Nutritional screening: No deficits noted. Tuberculosis screening: No symptoms or risk factors identified. Assessment: 21:18 General: Appears in no apparent distress. comfortable, well groomed, well developed, nw1 well nourished, Behavior is calm, cooperative, appropriate for age, flirty. Pain: Complains of pain in generalized. Neuro: No deficits noted. Cardiovascular: Reports lightheadedness, nausea, Rhythm is hypertensive. Respiratory: Reports shortness of breath Airway is patent Respiratory effort is even, unlabored, relaxed, Respiratory pattern is regular, symmetrical. GI: Abdomen is flat, non-distended, Reports nausea. Musculoskeletal: No deficits noted. Capillary refill < 3 seconds, Reports body aches and weakness x4 days. 22:06 General: Call on resulted COVID positive, physician notified. la4 Vital Signs: 20:32 BP 181 / 111; Pulse 82; Resp 16; Temp 98.2; Pulse Ox 100% on R/A; Weight 74.84 kg; cm10 Height 5 ft. 8 in. ; Pain 5/10; 21:00 BP 160 / 107; Pulse 80; Resp 16; Pulse Ox 100% ; nw1 22:53 BP 162 / 97; Pulse 68; Pulse Ox 97% ; nw1 20:32 Body Mass Index 25.09 (74.84 kg, 172.72 cm) cm10 20:32 Pain Scale: Adult cm10 Vitals: 21:00 Cardiac Rhythm Assessment Regular Sinus rhythm. nw1 [place] Coma Score: 21:00 Eye Response: spontaneous(4). Motor Response: obeys commands(6). Verbal Response: nw1 oriented(5). Total: 15. ED Course: 20:13 Patient arrived in ED. gm2 20:20 Peyman Anthony MD is Attending Physician. sp4 20:34 Triage completed. cm10 20:34 Arm band placed on Patient placed in waiting room. cm10 21:00 Patient has correct armband on for positive identification. Placed in gown. Bed in low nw1 position. Call light in reach. Side rails up X2. Provided Education on: POC. Client placed on continuous cardiac and pulse oximetry monitoring. NIBP monitoring applied. Door closed. Noise minimized. Warm blanket given. Call light at bedside Head of bed elevated. 21:00 No provider procedures requiring assistance completed. nw1 21:05 Inserted saline lock: 20 gauge in right forearm, using aseptic technique. Blood nw1 collected. 21:11 Cortez Tomlin, RN is Primary Nurse. la4 21:17 Troponin High Sensitivity Sent. nw1 21:17 Creatine Phosphokinase Sent. nw1 21:17 T4 Free Sent. nw1 21:17 TSH Sent. nw1 21:17 Procalcitonin Sent. nw1 21:17 CRP Sent. nw1 21:18 CBC with Diff Sent. nw1 21:18 CMP Sent. nw1 21:18 Lipase Sent. nw1 21:18 Influenza Screen (a \T\ B) Sent. nw1 21:18 COVID-19 SARS RT PCR Sent. nw1 22:20 CT Chest, Abdomen, Pelvis - W/Contrast In Process Unspecified. EDMS 22:[address]. la4 23:33 Los Rosen MD is Referral Physician. sp4 23:34 Zion Sheridan DO is Referral Physician. sp4 23:54 IV discontinued, intact, bleeding controlled, No redness/swelling at site. Pressure nw1 dressing applied. Administered Medications: 21:17 Drug: Ondansetron IVP 4 mg IVP once; over 2 minutes Route: IVP; Site: right forearm; nw1 21:17 Drug: Acetaminophen-Codeine PO (300 mg-30 mg) 2 tabs PO once; RASS on ADMIN: Combtv4, nw1 Very Agttd3, Agttd2, Rstlss1, AlertClm0, Drwsy-1, Lt Sdtn-2, Mod Sdtn-3, Dp Sdtn-4, UnArsble-5 Route: PO; 21:18 Drug: NS 0.9% IV 1000 ml IV at 1 bolus Per protocol; 1000 mL bolus Route: IV; Rate: 1 nw1 bolus; Site: right forearm; 21:18 Drug: TORadol - Ketorolac IVP 15 mg IVP once Route: IVP; Site: right forearm; nw1 Medication: 21:00 VIS not applicable for this client. nw1 Outcome: 21:37 Condition: stable nw1 23:35 Discharge ordered by . sp4 23:53 Discharged to home ambulatory, nw1 23:53 Condition: stable 23:53 Discharge instructions given to patient, Instructed on discharge instructions, follow up and referral plans. medication usage, safety practices, Demonstrated understanding of instructions, follow-up care, medications, Prescriptions given X 3, 23:54 Patient left the ED. nw1 Signatures: Dispatcher [employer] EDMS Peyman Anthony MD MD sp4 Susi Dawson RN RN cm10 Elizabeth Hull 2 Cortez Tomlin RN RN la4 Daniela Vargas RN RN nw1
--- NOTE | 2022-11-30 23:36 | EDPHYS ---
Physician Documentation [facility] Name: Raphael Groves Age: 72 yrs Sex: Male : 1950 Arrival Date: 11/30/2022 Time: 20:08 Bed 3 Private MD: ED Physician Peyman Anthony HPI: 11/30 20:20 This 72 yrs old Male presents to ER via Unassigned with complaints of Flu sp4 Symptoms. 20:35 72-year-old male presents with complaint all fever, nausea, neck pain, body aches, sp4 subjective fever, dry cough and dyspnea for the past 4 days. Patient also reports unintentional weight loss of estimated 30 pounds in the last 6 months. Patient would like medical evaluation for the above symptoms. . Historical: - Allergies: 20:34 No Known Allergies; cm10 - PMHx: 20:34 Hypercholesterolemia; Hypertensive disorder; cm10 - PSHx: 20:34 Stented artery; cm10 - Immunization history:: Adult Immunizations unknown. - Social history:: Smoking status: Patient denies any tobacco usage or history of. Patient uses street drugs, marijuana. - Family history:: not pertinent. ROS: 23:29 Constitutional: Negative for fever, chills, and positive unintentional weight loss of sp4 30 pounds, also positive for cold, headache, body aches, dyspnea, subjective fever, nausea 23:29 All other systems are negative, Exam: 23:20 ECG was reviewed by the Attending Physician. EKG time 2043, there is biatrial sp4 enlargement, normal sinus rhythm at a rate of 79, left ventricular hypertrophy, no ST elevation or depression. 23:29 Constitutional: This is a well developed, well nourished patient who is awake, alert, sp4 and in no acute distress. Head/Face: Normocephalic, atraumatic. Eyes: Pupils equal round and reactive to light, extra-ocular motions intact. Lids and lashes normal. Conjunctiva and sclera are not injected. Cornea within normal limits. Periorbital areas with no swelling, redness, or edema. ENT: Nares patent. No nasal discharge, no septal abnormalities noted. Tympanic membranes are normal and external auditory canals are clear. Oropharynx with no redness, swelling, or masses, exudates, or evidence of obstruction, uvula midline. Mucous membranes moist. Neck: Trachea midline, no thyromegaly or masses palpated, and no cervical lymphadenopathy. Supple, full range of motion without nuchal rigidity, or vertebral point tenderness. Chest/axilla: Normal chest wall appearance and motion. Nontender with no deformity. No lesions are appreciated. Cardiovascular: Regular rate and rhythm with a normal S1 and S2. No gallops, murmurs, or rubs. Normal PMI, no JVD. No pulse deficits. Respiratory: Lungs have equal breath sounds bilaterally, clear to auscultation and percussion. No rales, rhonchi or wheezes noted. No increased work of breathing, no retractions or nasal flaring. Abdomen/GI: Soft, non-tender, with normal bowel sounds. No distension or tympany. No guarding or rebound. No evidence of tenderness throughout. Back: No spinal tenderness. No costovertebral tenderness. Skin: Warm, dry with normal turgor. Normal color with no rashes, no lesions, and no evidence of cellulitis. MS/ Extremity: Pulses equal, no cyanosis. Neurovascular intact. Full, normal range of motion. Neuro: Awake and alert, GCS 15, oriented to person, place, time, and situation. Cranial nerves II-XII grossly intact. Motor strength 5/5 in all extremities. Sensory grossly intact. Psych: Awake, alert, with orientation to person, place and time. Behavior, mood, and affect are within normal limits Vital Signs: 20:32 BP 181 / 111; Pulse 82; Resp 16; Temp 98.2; Pulse Ox 100% on R/A; Weight 74.84 kg; cm10 Height 5 ft. 8 in. ; Pain 5/10; 21:00 BP 160 / 107; Pulse 80; Resp 16; Pulse Ox 100% ; nw1 22:53 BP 162 / 97; Pulse 68; Pulse Ox 97% ; nw1 20:32 Body Mass Index 25.09 (74.84 kg, 172.72 cm) cm10 20:32 Pain Scale: Adult cm10 [place] Coma Score: 21:00 Eye Response: spontaneous(4). Motor Response: obeys commands(6). Verbal Response: nw1 oriented(5). Total: 15. MDM: 20:22 Patient medically screened. sp4 23:29 Differential Diagnosis altered mental status, sepsis, flu, COVID. Data reviewed: vital sp4 signs, nurses notes, lab test result(s), Flu: negative COVID Positive , EKG, radiologic studies, CT scan. Consideration of Admission/Observation Escalation of care including admission/observation considered. ED course: Patient was positive for acute COVID, CT negative for acute emergent anomalies. But GI consultation was recommended for increased size biliary duct. Patient also reported using periodic cocaine via snorting. Was advised to discontinue cocaine abuse. . 11/30 20:22 Order name: COVID-19 SARS RT PCR; Complete Time: 23: sp4 11/30 20:22 Order name: Influenza Screen (a \T\ B); Complete Time: 23: sp4 11/30 20:32 Order name: CBC with Diff; Complete Time: 23: sp4 11/30 20:32 Order name: CMP; Complete Time: 23: sp4 11/30 20:32 Order name: Lipase; Complete Time: 23: sp4 11/30 20:32 Order name: Urinalysis w/ reflexes; Complete Time: 23: sp4 11/30 20:33 Order name: CRP; Complete Time: 23: sp4 11/30 20:33 Order name: Procalcitonin; Complete Time: 23:19 sp4 11/30 20:33 Order name: TSH; Complete Time: 23: sp4 11/30 20:33 Order name: T4 Free; Complete Time: 23: sp4 11/30 20:34 Order name: Creatine Phosphokinase; Complete Time: 23: sp4 11/30 20:43 Order name: Troponin High Sensitivity; Complete Time: 23: sp4 11/30 20:33 Order name: CT Chest, Abdomen, Pelvis - W/Contrast; Complete Time: 23: sp4 11/30 20:43 Order name: EKG; Complete Time: 20:43 sp4 11/30 20:33 Order name: IV Saline Lock; Complete Time: : sp4 11/30 20:33 Order name: Labs collected and sent; Complete Time: 21: sp4 11/30 20:43 Order name: EKG - Nurse/Tech; Complete Time: 20:46 sp4 EC:20 Rate is 79 beats/min. Rhythm is regular, Sinus Rhythm. QRS [place] is Normal. [place] interval sp4 is normal. No Q waves. T waves are Inverted in leads V5, V6. No ST changes noted. Clinical impression: No evidence of ischemia. Interpreted by me. Administered Medications: 21:17 Drug: Ondansetron IVP 4 mg IVP once; over 2 minutes Route: IVP; Site: right forearm; nw1 21:17 Drug: Acetaminophen-Codeine PO (300 mg-30 mg) 2 tabs PO once; RASS on ADMIN: Combtv4, nw1 Very Agttd3, Agttd2, Rstlss1, AlertClm0, Drwsy-1, Lt Sdtn-2, Mod Sdtn-3, Dp Sdtn-4, UnArsble-5 Route: PO; 21:18 Drug: NS 0.9% IV 1000 ml IV at 1 bolus Per protocol; 1000 mL bolus Route: IV; Rate: 1 nw1 bolus; Site: right forearm; 21:18 Drug: TORadol - Ketorolac IVP 15 mg IVP once Route: IVP; Site: right forearm; nw1 Disposition Summary: 11/30/22 23:35 Discharge Ordered Notes: Location: Home sp4 Problem: new sp4 Symptoms: have improved sp4 Condition: Stable sp4 Diagnosis - Viral infection, unspecified sp4 - Acute COVID-19, acute systemic viral illness, increased diameter of the common bile sp4 duct. Followup: sp4 - With: Los Rosen MD - When: 7 - 10 days - Reason: Recheck today's complaints Followup: sp4 - With: Zion hSeridan DO - When: 7 - 10 days - Reason: Recheck today's complaints Discharge Instructions: - Discharge Summary Sheet sp4 - COVID-19 sp4 Forms: - Patient Portal Instructions sp4 Prescriptions: - dextromethorphan HBr 5 mg/5 mL Oral syrup - administer 10 milliliter ORAL route every 8 hours PRN cough; 240 milliliter; sp4 Refills: 0, Product Selection Permitted - ondansetron 8 mg Oral Tablet,disintegrating - take 1 tablet ORAL route every 6 hours for 4 days PRN nausea; 30 tablet; sp4 Refills: 0, Product Selection Permitted - Ibuprofen 600 mg Oral tablet - take 1 tablet ORAL route every 6 hours As needed PRN body aches; 30 tablet; sp4 Refills: 0, Product Selection Permitted Signatures: Dispatcher [employer] EDPeyman Jacques MD MD sp4 Susi Dawson RN RN cm10 Daniela Vargas RN RN nw1
--- NOTE | 2022-12-01 11:56 | EKG ---
Test Date: 2022-11-30 Test Time: 20:44:05 Fur Examiner: KIMBERLY MEASUREMENT RESULTS: Intervals: Rate: 79 CA: 148 QRSD: 84 QT: 394 QTc: 451 [place]: P: 76 CA: 148 QRS: -57 T: 230 INTERPRETIVE STATEMENTS: Normal sinus rhythm Biatrial enlargement Left anterior fascicular block Left ventricular hypertrophy Anteroseptal infarct, age undetermined ST & T wave abnormality, consider lateral ischemia Abnormal ECG Compared to ECG 08/30/2021 22:12:50 ST (T wave) deviation now present Possible ischemia now present Ventricular premature complex(es) no longer present Myocardial infarct finding still present Electronically Signed On 12-01-22 11:55:23 CDT by Harris Gardner
== END 2022-11-30 23:54 | disposition home or self-care (01) ==
LOC: ER 20:08
DX: U07.1 COVID-19 (principal); B34.9 Viral infection, unspecified; K83.8 Other specified diseases of biliary tract; I10 Essential (primary) hypertension; E78.00 Pure hypercholesterolemia, unspecified
CPT/HCPCS: 85025; 81001; 36415; 82550; 84443; 84484; 84439; 83690; 80053; 84145; 87635; 86140; 87804 ×2; 71260; 74177; Q9967; J2405; J7030; 93005

== ENCOUNTER 2023-06-12 05:41 | Emergency (ER) | payer OTHER ==
[2023-06-12] MEDS ORDERED: KETOROLAC 30 MG/ML INJ ONE (05:52)
--- NOTE | 2023-06-12 05:55 | EDPHYS ---
Physician Documentation [facility] Name: Raphael Groves Age: 72 yrs Sex: Male : 1950 Arrival Date: 06/12/2023 Time: 05:41 Bed 4 Private MD: ED Physician Edilson Sinclair HPI: 06/11 05:51 This 72 yrs old Male presents to ER via Unassigned with complaints of Hip Pain. ms3 05:51 72-year-old male presents to the emergency department for right hip pain that he states ms3 "has been going on all my life." Patient states that this episode began at 8 PM while trying to go to bed. Patient states he has been awake and walking around and the pain continues. Patient states he has taken Toradol shots to improve the pain previously. Patient denies fevers, chills. Historical: - Allergies: 05:55 No Known Allergies; bm8 - Home Meds: 05:55 atorvastatin Oral [Active]; meloxicam Oral [Active]; Plavix Oral [Active]; prasugrel bm8 Oral [Active]; metoprolol succinate oral [Active]; losartan oral [Active]; - PMHx: 05:55 Hypercholesterolemia; Hypertensive disorder; bm8 - PSHx: 05:55 Stented artery; bm8 - Immunization history:: Adult Immunizations up to date. - Infectious Disease History:: Denies. - Social history:: Smoking status: Patient denies any tobacco usage or history of. ROS: 05:51 Constitutional: Negative for fever, and chills. Neck: Negative for injury, pain, and ms3 swelling, Cardiovascular: Negative for chest pain, and palpitations. Respiratory: Negative for shortness of breath, cough, wheezing, and pleuritic chest pain, Abdomen/GI: Negative for abdominal pain, nausea, vomiting, diarrhea, and constipation, 05:51 MS/extremity: Positive for Right hip pain, Exam: 05:51 Constitutional: This is a well developed, well nourished patient who is awake, alert, ms3 and in no acute distress. Head/Face: Normocephalic, atraumatic. Chest/axilla: Normal chest wall appearance and motion. Nontender with no deformity. Cardiovascular: Regular rate and rhythm with a normal S1 and S2. No gallops, murmurs, or rubs. Normal PMI, no JVD. No pulse deficits. Respiratory: Lungs have equal breath sounds bilaterally, clear to auscultation and percussion. No rales, rhonchi or wheezes noted. No increased work of breathing, no retractions or nasal flaring. Abdomen/GI: Soft, non-tender, with normal bowel sounds. No distension or tympany. No guarding or rebound. No evidence of tenderness throughout. Skin: Warm, dry with normal turgor. Normal color with no rashes, no lesions, and no evidence of cellulitis. 05:51 Musculoskeletal/extremity: Extremities: noted in the Right hip: pain, There is no evidence of decreased ROM, erythema, Vital Signs: 05:54 BP 174 / 81; Pulse 61; Resp 17; Temp 97.9; Pulse Ox 100% ; Weight 70.31 kg; Height 5 bm8 ft. 8 in. ; Pain 6/10; 05:54 Body Mass Index 23.57 (70.31 kg, 172.72 cm) bm8 05:54 Pain Scale: Adult bm8 [place] Coma Score: 05:59 Eye Response: spontaneous(4). Motor Response: obeys commands(6). Verbal Response: bm8 oriented(5). Total: 15. MDM: 05:50 Patient medically screened. ms3 05:51 Differential diagnosis: bursitis, arthritis, strain. Data reviewed: vital signs, nurses ms3 notes, and as a result, I will discharge patient. I considered the following discharge prescriptions or medication management in the emergency department Medications were administered in the Emergency Department. See MAR. Counseling: I had a detailed discussion with the patient and/or guardian regarding the historical points, exam findings, and any diagnostic results supporting the discharge/admit diagnosis, the need for outpatient follow up, to return to the emergency department if symptoms worsen or persist or if there are any questions or concerns that arise at home. Special discussion: I discussed with the patient/guardian in detail that at this point there is no indication for admission to the hospital. It is understood, however, that if the symptoms persist or worsen the patient needs to return immediately for re-evaluation. ED course: Patient request Toradol shot. Toradol injection ordered. Patient to follow-up with Dr. Christensen in 2 to 3 days. Patient understands agrees with plan. All questions were answered. Return precautions discussed include worsening symptoms, or any other concerns.. Administered Medications: 05:55 Drug: Ketorolac IM 15 mg IM once Route: IM; Site: right deltoid; tm6 06:02 Follow up: Response: No adverse reaction bm8 Disposition Summary: 06/12/23 05:53 Discharge Ordered Notes: Location: Home ms3 Condition: Stable ms3 Diagnosis - Pain in right hip ms3 Followup: ms3 - With: Jaiden Christensen DO - When: 2 - 3 days - Reason: Recheck today's complaints Discharge Instructions: - Discharge Summary Sheet ms3 - Joint Pain ms3 Forms: - Medication Reconciliation Form ms3 - Antibiotic Education ms3 - Prescription Opioid Use ms3 - Patient Portal Instructions ms3 - Leadership Thank You Letter ms3 Prescriptions: - Ibuprofen 600 mg Oral Tablet - take 1 tablet ORAL route every 6 hours As needed take with food; 30 tablet; ms3 Refills: 0, Product Selection Permitted - Cyclobenzaprine 10 mg Oral Tablet - take 1 tablet ORAL route every 8 hours As needed; 30 tablet; Refills: 0, ms3 Product Selection Permitted Signatures: Edilson Sinclair DO DO ms3 Abelardo Casillas, RN RN tm6 Ramon Black RN RN bm8
--- NOTE | 2023-06-12 06:02 | ER ---
Nurse's Notes [facility] Name: Raphael Groves Age: 72 yrs Sex: Male : 1950 Arrival Date: 06/12/2023 Time: 05:41 Bed 4 Private MD: Diagnosis: Pain in right hip Presentation: 06/11 05:54 Chief complaint: Patient states: I have had this bad hip pain for life. Coronavirus bm8 screen: At this time, the client does not indicate any symptoms associated with coronavirus-19. Ebola Screen: Patient negative for fever greater than or equal to 101.5 degrees Fahrenheit, and additional compatible Ebola Virus Disease symptoms Patient denies exposure to infectious person. Patient denies travel to an Ebola-affected area in the 21 days before illness onset. No symptoms or risks identified at this time. Initial Sepsis Screen: Does the patient meet any 2 criteria? No. Patient's initial sepsis screen is negative. Does the patient have a suspected source of infection? No. Patient's initial sepsis screen is negative. Risk Assessment: Do you want to hurt yourself or someone else? Patient reports no desire to harm self or others. Onset of symptoms is unknown. 05:54 Method Of Arrival: Ambulatory bm8 05:54 Acuity: MAHESH 4 bm8 Triage Assessment: 05:55 General: Appears in no apparent distress. uncomfortable, Behavior is calm, cooperative, bm8 appropriate for age. Pain: Complains of pain in right hip Pain radiates to right leg Pain currently is 6 out of 10 on a pain scale. Quality of pain is described as aching, crampy. EENT: No deficits noted. No signs and/or symptoms were reported regarding the EENT system. Neuro: No deficits noted. Level of Consciousness is awake, alert, obeys commands, Oriented to person, place, time, situation, Appropriate for age. Cardiovascular: Denies chest pain, Capillary refill < 3 seconds Patient's skin is warm and dry. Respiratory: Airway is patent Trachea midline Respiratory effort is even, unlabored, Respiratory pattern is regular, symmetrical. GI: No deficits noted. No signs and/or symptoms were reported involving the gastrointestinal system. : No deficits noted. No signs and/or symptoms were reported regarding the genitourinary system. Derm: No deficits noted. No signs and/or symptoms reported regarding the dermatologic system. Musculoskeletal: Circulation, motion, and sensation intact. Capillary refill < 3 seconds, Reports pain in right hip. Historical: - Allergies: 05:55 No Known Allergies; bm8 - Home Meds: 05:55 atorvastatin Oral [Active]; meloxicam Oral [Active]; Plavix Oral [Active]; prasugrel bm8 Oral [Active]; metoprolol succinate oral [Active]; losartan oral [Active]; - PMHx: 05:55 Hypercholesterolemia; Hypertensive disorder; bm8 - PSHx: 05:55 Stented artery; bm8 - Immunization history:: Adult Immunizations up to date. - Infectious Disease History:: Denies. - Social history:: Smoking status: Patient denies any tobacco usage or history of. Screenin:59 [facility] ED Fall Risk Assessment (Adult) History of falling in the last 3 months, bm8 including since admission No falls in past 3 months (0 pts) Confusion or Disorientation No (0 pts) Intoxicated or Sedated No (0 pts) Impaired Gait No (0 pts) Mobility Assist Device Used No (0 pt) Altered Elimination No (0 pt) Score/Fall Risk Level 0 - 2 = Low Risk Oriented to surroundings, Maintained a safe environment, Educated pt \T\ family on fall prevention, incl call for assistance when getting out of bed. Abuse screen: Denies threats or abuse. Denies injuries from another. Nutritional screening: No deficits noted. Tuberculosis screening: No symptoms or risk factors identified. Assessment: 05:59 Reassessment: see triage note. bm8 Vital Signs: 05:54 BP 174 / 81; Pulse 61; Resp 17; Temp 97.9; Pulse Ox 100% ; Weight 70.31 kg; Height 5 bm8 ft. 8 in. ; Pain 6/10; 05:54 Body Mass Index 23.57 (70.31 kg, 172.72 cm) bm8 05:54 Pain Scale: Adult bm8 [place] Coma Score: 05:59 Eye Response: spontaneous(4). Motor Response: obeys commands(6). Verbal Response: bm8 oriented(5). Total: 15. ED Course: 05:44 Patient arrived in ED. jj6 05:44 Abelardo Casillas RN is Primary Nurse. tm6 05:45 Edilson Sinclair DO is Attending Physician. ms3 05:53 Jaiden Christensen DO is Referral Physician. ms3 05:55 Triage completed. bm8 05:55 Arm band placed on right wrist. Patient placed in an exam room, on a stretcher, on bm8 pulse oximetry. 05:59 Patient has correct armband on for positive identification. Call light in reach. Client bm8 placed on continuous cardiac and pulse oximetry monitoring. NIBP monitoring applied. Pulse ox on. NIBP on. 05:59 No provider procedures requiring assistance completed. Patient did not have IV access bm8 during this emergency room visit. 06:01 Provided Education on: post er care. bm8 Administered Medications: 05:55 Drug: Ketorolac IM 15 mg IM once Route: IM; Site: right deltoid; tm6 06:02 Follow up: Response: No adverse reaction bm8 Medication: 05:59 VIS not applicable for this client. bm8 Outcome: 05:53 Discharge ordered by MD. ms3 05:59 Discharged to home ambulatory, bm8 05:59 Condition: stable 05:59 Discharge instructions given to patient, Instructed on discharge instructions, follow up and referral plans. medication usage, Demonstrated understanding of instructions, follow-up care, medications, Prescriptions given X 2, 06:01 Patient left the ED. bm8 Signatures: Edilson Sinclair DO DO ms3 Ángela Granadoj6 Abelardo Casillas, RN RN tm6 Ramon Black, RN RN bm8
[2023-06-12 06:24] VITALS: BP 174/81; TEMP 97.9; O2SAT 100
== END 2023-06-12 06:01 | disposition home or self-care (01) ==
LOC: ER 05:41
DX: M25.551 Pain in right hip (principal); Z79.01 Long term (current) use of anticoagulants
CPT/HCPCS: 96372; 99284

== ENCOUNTER 2023-06-12 18:07 | Observation (INO) | payer OTHER ==
[2023-06-12 18:52] LABS: Absolute Basophils 0.1 K/uL (0-0.5); Absolute Eosinophils 0.2 K/uL (0-0.5); Absolute Lymphocytes (CBC) 2.5 K/uL (0.7-4.9); Absolute Monocytes 0.8 K/uL (0.1-1.3); Absolute Neutrophil 6.6 K/uL (1.8-8.0); Basophils % 0.6 % (0-1.3); Eosinophils % 1.9 % (0-4.4); Lymphocytes % 24.6 % (15.3-44.8); MCH 32.1 pg (27.0-35.0); MCHC 33.4 g/dL (32.0-36.0); MPV 9.8 fL (7.6-11.3); Monocytes % 7.7 % (3.3-12.3); Neutrophils % 65.2 % (41.7-73.7); Platelets 231 thou/uL (152-406); RBC Red Blood Cell Count 4.69 M/uL (4.33-5.43); Red Cell Distribution Width 13.8 % (12.1-15.2)
[2023-06-12] MEDS ORDERED: METOPROLOL TARTRATE 5 MG/5 ML INJ IV ONE ×3 (18:52→20:01)
[2023-06-12] MEDS ORDERED: NA CHLORIDE 0.9% 500 ML ONE (18:52)
[2023-06-12] MEDS ORDERED: MAGNESIUM SULFATE 1 gm IVPB 1 GM/100 ML BAG IV ONE (18:52)
[2023-06-12 19:12] LABS: PT Prothrombin Time 10.7 SECONDS (9.5-12.5); Protime INR 0.97
[2023-06-12 19:15] LABS: Albumin 3.7 g/dL (3.4-5.0); Albumin/Globulin Ratio 0.9 (1.1-1.8); Anion Gap 9.1 mEq/L (5.0-15.0); Bilirubin Direct 0.2 mg/dL (0-0.2); Bilirubin Indirect, Calculated 0.3 mg/dL (0.2-0.8); Bilirubin Total 0.5 mg/dL (0.2-1.0); Globulin 3.9 g/dL (2.3-3.5); Magnesium 2.3 mg/dL (1.6-2.4); Potassium 4.1 mEq/L (3.5-5.1); Protein, Total 7.6 g/dL (6.4-8.2); Troponin High Sensitivity 38.7 pg/mL (<58.9)
[2023-06-12] MEDS ORDERED: METOPROLOL TAR 50 MG TAB ONE (19:29)
--- NOTE | 2023-06-12 19:44 | RAD REPORT ---
EXAM DESCRIPTION: [facility]on Single View06/12/2023 6:55 pm CLINICAL HISTORY: Palpitations COMPARISON: none FINDINGS: The lungs appear clear of acute infiltrate. The heart is normal size IMPRESSION: No acute abnormalities displayed
--- NOTE | 2023-06-12 20:59 | ER ---
Nurse's Notes [facility] Name: Raphael Groves Age: 72 yrs Sex: Male : 1950 Arrival Date: 06/12/2023 Time: 18:07 Bed 13 Private MD: Diagnosis: Unspecified atrial flutter Presentation: 06/11 18:14 Chief complaint: Patient states: Rapid heart rate. States he woke up at 3am feeling his me1 heart racing, went back to sleep in hopes it would get better, woke up and was still fast. 18:14 Coronavirus screen: Vaccine status: Patient reports being unvaccinated. Ebola Screen: [facility] Patient denies travel to an Ebola-affected area in the 21 days before illness onset. Initial Sepsis Screen: Does the patient meet any 2 criteria? HR > 90 bpm. No. Patient's initial sepsis screen is negative. Does the patient have a suspected source of infection? No. Patient's initial sepsis screen is negative. Risk Assessment: Do you want to hurt yourself or someone else? Patient reports no desire to harm self or others. Note Declined wheel chair when taken to treatment room (13). Onset of symptoms was June 12, 2023. 18:14 Method Of Arrival: Ambulatory [facility] 18:14 Acuity: MAHESH 2 [facility] Historical: - Allergies: 18:33 No Known Allergies; nj1 - PMHx: 18:33 Hypercholesterolemia; Hypertensive disorder; nj1 - PSHx: 18:33 Stented artery; nj1 - Immunization history:: Client reports having NOT received the Covid vaccine. - Infectious Disease History:: Denies. - Social history:: Smoking status: Patient denies any tobacco usage or history of. Screenin:30 [facility] ED Fall Risk Assessment (Adult) History of falling in the last 3 months, me1 including since admission No falls in past 3 months (0 pts) Confusion or Disorientation No (0 pts) Intoxicated or Sedated No (0 pts) Impaired Gait No (0 pts) Mobility Assist Device Used No (0 pt) Altered Elimination No (0 pt) Score/Fall Risk Level 0 - 2 = Low Risk Maintained a safe environment, Provided non-skid footwear, Hourly rounding (assess needs \T\ fall precautionary measures) done. Abuse screen: Denies threats or abuse. Nutritional screening: No deficits noted. Tuberculosis screening: No symptoms or risk factors identified. Assessment: 18:30 General: Appears comfortable, well groomed, well developed, well nourished, Behavior is me1 calm, cooperative, appropriate for age, Reports rapid heart rate when he woke up at 3 am. Went back to sleep hoping it would resolve and it didn't. Pain: Denies pain. Neuro: Neuro: Level of Consciousness is awake, alert, obeys commands, Oriented to person, place, time, situation, Appropriate for age. Cardiovascular: Capillary refill < 3 seconds Patient's skin is warm and dry. Rhythm is sinus tachycardia. Respiratory: Airway is patent Respiratory effort is even, unlabored, Respiratory pattern is regular, symmetrical. GI: No signs and/or symptoms were reported involving the gastrointestinal system. : No signs and/or symptoms were reported regarding the genitourinary system. EENT: No signs and/or symptoms were reported regarding the EENT system. Derm: Skin is intact, is healthy with good turgor, Skin is pink, warm \T\ dry. Musculoskeletal: No signs and/or symptoms reported regarding the musculoskeletal system. 21:36 Pain: Pain began 3 am. me1 21:37 Pain: Pain does not radiate. me1 Vital Signs: 18:14 BP 131 / 100; Pulse 138; Resp 20; Temp 98.1(O); Pulse Ox 100% on R/A; Weight 63.5 kg; nj1 Height 5 ft. 8 in. ; 18:57 BP 117 / 91; Pulse 140; Resp 20; Pulse Ox 100% on R/A; me1 19:03 BP 124 / 92; Pulse 131; Resp 19; Pulse Ox 99% on R/A; me1 19:08 BP 123 / 91; Pulse 126; Resp 10; Pulse Ox 99% on R/A; me1 19:22 BP 119 / 88; Pulse 124; Resp 18; Pulse Ox 99% on R/A; me1 20:05 BP 126 / 92; Pulse 129; Resp 16; Pulse Ox 99% on R/A; me1 20:07 BP 126 / 92; Pulse 58; Resp 16; Pulse Ox 98% on R/A; me1 21:00 BP 131 / 72; Pulse 59; Resp 16; Pulse Ox 100% on R/A; me1 22:00 BP 126 / 68; Pulse 58; Resp 16; Pulse Ox 100% on R/A; me1 22:30 BP 125 / 87; Pulse 57; Resp 16; Pulse Ox 99% on R/A; me1 18:14 Body Mass Index 21.29 (63.50 kg, 172.72 cm) nj1 ED Course: 18:10 Patient arrived in ED. ra3 18:14 Arm band placed on. nj1 18:18 Client placed on continuous cardiac and pulse oximetry monitoring. NIBP monitoring nj1 applied. threat monitoring analyst on. 18:25 Jun Negron PA is PHCP. cp 18:25 Jun Balbuena MD is Attending Physician. cp 18:25 EKG done, by ED staff, reviewed by Jun Balbuena MD. em1 18:30 No provider procedures requiring assistance completed. O2 via room air. me1 18:30 Patient has correct armband on for positive identification. Bed in low position. Call me1 light in reach. Side rails up X2. Provided Education on: POC. Verbalized understanding. . 18:33 Triage completed. nj1 18:35 Inserted saline lock: 20 gauge in right forearm, using aseptic technique. Blood em1 collected. 18:35 Initial lab(s) drawn, by pr, sent to lab. em1 18:51 Genet Arnett, WILLIE is Primary Nurse. me1 18:56 XRAY Chest (1 view) In Process Unspecified. EDMS 19:22 Federico Freeman MD is Attending Physician. cp 20:58 Werner Huston MD is Hospitalizing Provider. cp 21:31 Patient admitted, IV remains in place. me1 Administered Medications: 18:56 Drug: Metoprolol IVP 2.5 mg IVP every 5 minutes; Hold for SBP < 100 or HR < 60. x3 me1 Route: IVP; Site: right forearm; 18:57 Drug: NS 0.9% IV 500 ml IV at bolus once Route: IV; Rate: bolus; Site: right forearm; me1 19:57 Follow up: Response: No adverse reaction; IV Status: Completed infusion; IV Intake: me1 500ml 19:01 Drug: Magnesium Sulfate IVPB 1 grams IVPB once over 1 hrs Route: IVPB; Infused Over: 1 me1 hrs; Site: right forearm; 19:57 Follow up: Response: No adverse reaction; IV Status: Completed infusion me1 19:04 Drug: Metoprolol IVP 2.5 mg IVP every 5 minutes; Hold for SBP < 100 or HR < 60. x3 me1 Route: IVP; Site: right forearm; 19:08 Drug: Metoprolol IVP 2.5 mg IVP every 5 minutes; Hold for SBP < 100 or HR < 60. x3 me1 Route: IVP; Site: right forearm; 19:22 Follow up: Response: No adverse reaction; Other; heartrate decreased me1 19:31 Drug: Metoprolol PO 50 mg PO once Route: PO; me1 19:34 Follow up: Response: No adverse reaction me1 20:05 Drug: Metoprolol IVP 5 mg IVP once; Hold for SBP <100 or HR <60. Route: IVP; Site: me1 right forearm; 20:07 Follow up: Response: No adverse reaction me1 21:22 Drug: Enoxaparin Sub-Q 1 mg/kg Sub-Q once Route: Sub-Q; Site: abdomen; me1 21:30 Follow up: Response: No adverse reaction me1 Medication: 18:30 VIS not applicable for this client. me1 Intake: 19:57 IV: 500ml; Total: 500ml. me1 Outcome: 20:59 Decision to Hospitalize by Provider. cp 21:31 Admitted to Med/surg accompanied by tech, via wheelchair, room 231, with chart, Report me1 called to faxed at 21:29, receipt confirmed with Michel 21:31 Condition: stable 21:31 Instructed on the need for admit, 22:54 Patient left the ED. me1 Signatures: Dispatcher [employer] Iglesia Carrillo em1 Jun Negron PA PA cp Nasreen Andrade, RN RN nj1 Genet Arnett RN RN me1 Luci Ruelas ra3 Corrections: (The following items were deleted from the chart) 18:34 18:33 Immunization history: Client reports having NOT received the Covid vaccine. [place] [id number] 18:34 18:33 Social history: Smoking status: Patient denies any tobacco usage or history of. [place] [id number] 19:31 18:14 Chief complaint: Patient states: Rapid heart rate. States he woke up at 3am me1 feeling his heart racing, went back to sleep in hopes it would get better, woke up and was still fast. nj1
--- NOTE | 2023-06-12 20:59 | EDPHYS ---
Physician Documentation [facility] Name: Raphael Groves Age: 72 yrs Sex: Male : 1950 Arrival Date: 06/12/2023 Time: 18:07 Bed 13 Private MD: ED Physician Federico Freeman HPI: 06/11 18:25 This 72 yrs old Male presents to ER via Ambulatory with complaints of Irregular Pulse, cp Heart Palp. 18:25 The patient presents with a history of irregular heart beat, heart racing. Context: The cp symptoms occur at rest. Onset: The symptoms/episode began/occurred this morning, upon awakening at 0300. 18:25 Duration: The patient or guardian reports a single episode, that is still ongoing. cp Associated signs and symptoms: Pertinent negatives: chest pain, cough, fever, lightheadedness, SOB, syncope. Severity of symptoms: in the emergency department the symptoms are unchanged despite home interventions. The patient has experienced similar episodes in the past, a few times. Historical: - Allergies: 18:33 No Known Allergies; nj1 - PMHx: 18:33 Hypercholesterolemia; Hypertensive disorder; nj1 - PSHx: 18:33 Stented artery; nj1 - Immunization history:: Client reports having NOT received the Covid vaccine. - Infectious Disease History:: Denies. - Social history:: Smoking status: Patient denies any tobacco usage or history of. ROS: 18:30 Constitutional: Negative for body aches, chills, fever, poor PO intake, cp 18:30 Cardiovascular: Positive for palpitations, Negative for chest pain, edema, cp 18:30 Respiratory: Negative for cough, shortness of breath, wheezing, 18:30 Eyes: Negative for injury, pain, redness, and discharge, cp 18:30 ENT: Negative for drainage from ear(s), ear pain, sore throat, difficulty swallowing, difficulty handling secretions, 18:30 Abdomen/GI: Negative for abdominal pain, vomiting, diarrhea, constipation, 18:30 Back: Negative for pain at rest, pain with movement, 18:30 Neuro: Negative for altered mental status, dizziness, headache, numbness, syncope, near syncope, weakness, 18:30 All other systems are negative, Exam: 18:27 ECG was reviewed by the Attending Physician. cp 18:33 Constitutional: The patient appears in no acute distress, alert, awake, cp non-diaphoretic, non-toxic, well developed, well nourished, 18:33 Head/Face: Normocephalic, atraumatic. cp 18:33 Eyes: Periorbital structures: appear normal, Conjunctiva: normal, no exudate, no injection, Sclera: no appreciated abnormality, Lids and lashes: appear normal, bilaterally, 18:33 ENT: External ear(s): are unremarkable, Nose: is normal, Mouth: Lips: moist, Oral mucosa: pink and intact, moist, Posterior pharynx: is normal, airway is patent, no erythema, no exudate, 18:33 Neck: ROM/movement: is normal, is supple, without pain, no range of motions limitations, no nuchal rigidity, 18:33 Chest/axilla: Inspection: normal, Palpation: is normal, no crepitus, no tenderness, 18:33 Cardiovascular: Rate: tachycardic, Rhythm: regular, Edema: is not appreciated, JVD: is not appreciated, 18:33 Respiratory: the patient does not display signs of respiratory distress, Respirations: normal, no use of accessory muscles, no retractions, labored breathing, is not present, Breath sounds: are clear throughout, no decreased breath sounds, no stridor, no wheezing, 18:33 Abdomen/GI: Inspection: abdomen appears normal, Palpation: abdomen is soft and non-tender, in all quadrants, 18:33 Back: pain, is absent, ROM is normal, 18:33 Neuro: Orientation: to person, place \T\ time. Mentation: is normal, Motor: moves all fours, strength is normal, Sensation: is normal, 21:20 ECG was reviewed by the Attending Physician. cp Vital Signs: 18:14 BP 131 / 100; Pulse 138; Resp 20; Temp 98.1(O); Pulse Ox 100% on R/A; Weight 63.5 kg; nj1 Height 5 ft. 8 in. ; 18:57 BP 117 / 91; Pulse 140; Resp 20; Pulse Ox 100% on R/A; me1 19:03 BP 124 / 92; Pulse 131; Resp 19; Pulse Ox 99% on R/A; me1 19:08 BP 123 / 91; Pulse 126; Resp 10; Pulse Ox 99% on R/A; me1 19:22 BP 119 / 88; Pulse 124; Resp 18; Pulse Ox 99% on R/A; me1 20:05 BP 126 / 92; Pulse 129; Resp 16; Pulse Ox 99% on R/A; me1 20:07 BP 126 / 92; Pulse 58; Resp 16; Pulse Ox 98% on R/A; me1 21:00 BP 131 / 72; Pulse 59; Resp 16; Pulse Ox 100% on R/A; me1 22:00 BP 126 / 68; Pulse 58; Resp 16; Pulse Ox 100% on R/A; me1 22:30 BP 125 / 87; Pulse 57; Resp 16; Pulse Ox 99% on R/A; me1 18:14 Body Mass Index 21.29 (63.50 kg, 172.72 cm) nj1 MDM: 18:25 Patient medically screened. cp 21:00 Data reviewed: vital signs, nurses notes, lab test result(s), EKG, radiologic studies, cp plain films, and as a result, I will admit patient. 21:00 Management of patient was discussed with the following: Hospitalist: DR Huston will cp admit after discussion. Independent interpretation of the following test(s) in the Emergency Department EKG: See my EKG interpretation above. Care significantly affected by the following chronic conditions: Hypertension. Counseling: I had a detailed discussion with the patient and/or guardian regarding the historical points, exam findings, and any diagnostic results supporting the discharge/admit diagnosis, lab results, radiology results, the need for further work-up and treatment in the hospital, to return to the emergency department if symptoms worsen or persist or if there are any questions or concerns that arise at home. Response to treatment: the patient's symptoms have markedly improved after treatment, and as a result, I will admit patient. 06/11 18:23 Order name: Basic Metabolic Panel; Complete Time: 19:22 cp 06/11 18:23 Order name: CBC with Diff; Complete Time: 19: cp 06/11 18:23 Order name: LFT's; Complete Time: 19:22 cp 06/11 18:23 Order name: Magnesium; Complete Time: 19:22 cp 06/11 18:23 Order name: NT PRO-BNP; Complete Time: 19:22 cp 06/11 18:23 Order name: PT-INR; Complete Time: 19:22 cp 06/11 18:23 Order name: Troponin HS; Complete Time: 19:22 cp 06/11 21:06 Order name: Thyroid Stimulating Hormone EDMS 06/11 21:06 Order name: Urinalysis w/ reflexes EDMS 06/11 21:06 Order name: CBC with Automated Diff EDMS 06/11 21:06 Order name: CBC with Automated Diff EDMS 06/11 21:06 Order name: Comprehensive Metabolic Panel EDMS 06/11 21:06 Order name: Comprehensive Metabolic Panel EDMS 06/11 21:06 Order name: Magnesium EDMS 06/11 21:06 Order name: Magnesium EDMS 06/11 21:06 Order name: Phosphorus EDMS 06/11 21:06 Order name: Phosphorus EDMS 06/11 21:06 Order name: Troponin High Sensitivity EDMS 06/11 21:06 Order name: Troponin High Sensitivity EDMS 06/11 21:06 Order name: Troponin High Sensitivity EDMS 06/11 21:06 Order name: Troponin High Sensitivity EDMS 06/11 22:48 Order name: Thyroid Stimulating Hormone EDMS 06/11 18:23 Order name: XRAY Chest (1 view); Complete Time: 19:50 cp 06/11 21:08 Order name: Echo with Doppler EDMS 06/11 18:23 Order name: EKG; Complete Time: 18:24 cp 06/11 21:06 Order name: CONS Physician Consult EDMS 06/11 18:23 Order name: Cardiac monitoring; Complete Time: 18:30 cp 06/11 18:23 Order name: EKG - Nurse/Tech; Complete Time: 18:25 cp 06/11 18:23 Order name: IV Saline Lock; Complete Time: 18:53 cp 06/11 18:23 Order name: Labs collected and sent; Complete Time: 18:53 cp 06/11 18:23 Order name: O2 Per Protocol; Complete Time: 18:53 cp 06/11 18:23 Order name: O2 Sat Monitoring; Complete Time: 18:54 cp 06/11 20:16 Order name: EKG - Nurse/Tech; Complete Time: 21:18 cp EC:27 Rate is 138 beats/min. Rhythm is regular. QRS interval is normal. QT interval is cp normal. T waves are Inverted in leads I, aVL, aVR. Interpreted by me. Reviewed by me. 21:20 Rate is 61 beats/min. Rhythm is regular. AR interval is normal. QRS interval is normal. cp QT interval is normal. T waves are Inverted in leads V5, V6. Interpreted by me. Reviewed by me. Administered Medications: 18:56 Drug: Metoprolol IVP 2.5 mg IVP every 5 minutes; Hold for SBP < 100 or HR < 60. x3 me1 Route: IVP; Site: right forearm; 18:57 Drug: NS 0.9% IV 500 ml IV at bolus once Route: IV; Rate: bolus; Site: right forearm; me1 19:57 Follow up: Response: No adverse reaction; IV Status: Completed infusion; IV Intake: me1 500ml 19:01 Drug: Magnesium Sulfate IVPB 1 grams IVPB once over 1 hrs Route: IVPB; Infused Over: 1 me1 hrs; Site: right forearm; 19:57 Follow up: Response: No adverse reaction; IV Status: Completed infusion me1 19:04 Drug: Metoprolol IVP 2.5 mg IVP every 5 minutes; Hold for SBP < 100 or HR < 60. x3 me1 Route: IVP; Site: right forearm; 19:08 Drug: Metoprolol IVP 2.5 mg IVP every 5 minutes; Hold for SBP < 100 or HR < 60. x3 me1 Route: IVP; Site: right forearm; 19:22 Follow up: Response: No adverse reaction; Other; heartrate decreased me1 19:31 Drug: Metoprolol PO 50 mg PO once Route: PO; me1 19:34 Follow up: Response: No adverse reaction me1 20:05 Drug: Metoprolol IVP 5 mg IVP once; Hold for SBP <100 or HR <60. Route: IVP; [place] [facility] [place]; 20:07 Follow up: Response: No adverse reaction me1 21:22 Drug: Enoxaparin Sub-Q 1 mg/kg Sub-Q once Route: Sub-Q; Site: abdomen; me1 21:30 Follow up: Response: No adverse reaction me1 Disposition: 23:33 Co-signature as Attending Physician, Federico Freeman MD I reviewed the patient's care rn provided by the Advanced Practice Provider and agree with the diagnosis and treatment plan. Disposition Summary: 06/12/23 20:59 Hospitalization Ordered Notes: Hospitalization Status: Inpatient Admission cp Provider: Werner Huston cp Location: Telemetry/MedSurg (Inpatient) cp Condition: Stable cp Problem: new cp Symptoms: have improved cp Bed/Room Type: Standard cp Room Assignment: 231(06/12/23 21:17) rv1 Diagnosis - Unspecified atrial flutter cp Forms: - Medication Reconciliation Form cp - SBAR form cp - Leadership Thank You Letter cp Signatures: Dispatcher [employer] EDMS Federico Freeman MD MD rn Jun Negron PA PA cp Marcelle Mena 1 Nasreen Andrade RN RN nj1 Genet Arnett RN RN va1 Corrections: (The following items were deleted from the chart) 18:34 18:33 Immunization history: Client reports having NOT received the Covid vaccine. [place] [id number] 18:34 18:33 Social history: Smoking status: Patient denies any tobacco usage or history of. [facility] nj1 20:59 20:59 Typical atrial flutter cp cp 21:17 20:59 cp rv1 06/12 16:58 06/11 18:25 Onset: The symptoms/episode began/occurred this morning, upon awakening, cp cp
[2023-06-12] MEDS ORDERED: ACETAMINOPHEN 325 MG TABLET PO PRN (21:01)
[2023-06-12] MEDS ORDERED: ONDANSETRON 4 MG/2 ML VIAL IV PRN (21:01)
[2023-06-12] MEDS ORDERED: METOPROLOL TARTRATE 5 MG/5 ML INJ IV PRN (21:05)
--- NOTE | 2023-06-12 21:07 | P.HP ---
Certification for Inpatient Patient admitted to: Inpatient With expected LOS: >2 Midnights Practitioner: I am a practitioner with admitting privileges, knowledge of patient current condition, hospital course, and medical plan of care. Services: Services provided to patient in accordance with Admission requirements found in Title 42 Section 412.3 of the Code of Federal Regulations Patient History Date of Service: 06/12/23 Reason for admission: Palpitation History of Present Illness: 72-year-old male with past medical history hypertension, hyperlipidemia, CAD status post PCI and stent placement , TIA Brought to ER with palpitation. Patient states that he had started having palpitation earlier this morning which woke him up from sleep. Denies any chest pain Denies any shortness of breath. No previous similar history or arrhythmias. Denies any fever or chills. No nausea vomiting or diarrhea. No dysuria All of a sudden started having palpitation and dizziness Assessed in the ER and was found to be atrial flutter with 2 is to 1 block and was admitted for further management. Allergies No Known Allergies Allergy (Unverified 06/12/23 21:23) - Past Medical/Surgical History -: Hypertension, hyperlipidemia, CAD, history of PCI -: Status post stent placements - Family History Family History: Reviewed- Non-Contributory - Social History Smoking Status: Never smoker Review of Systems 10-point ROS is otherwise unremarkable Physical Examination - Vital Signs Temperature: 97.8 F Blood Pressure: 148/74 Pulse: 98 Respirations: 18 Pulse Ox (%): 94 - Physical Exam General: Alert, In no apparent distress, Oriented x3 HEENT: Atraumatic, Normocephalic, PERRLA Neck: Supple, JVD not distended, No LAD Respiratory: Clear to auscultation bilaterally, Normal air movement Cardiovascular: No edema, No gallops, Irregular heart rate/rhythm Capillary refill: <2 Seconds Gastrointestinal: Soft and benign, W/out hepatosplenomegaly Musculoskeletal: No clubbing, No swelling Integumentary: No rashes, No breakdown Neurological: Normal strength at 5/5 x4 extr, Normal tone, Cranial nerves 3-12 intact, Normal reflexes 2+ Lymphatics: No axilla or inguinal lymphadenopathy - Studies Laboratory Data (last 24 hrs) 06/12/23 06/12/23 06/12/23 18:35 18:35 18:35 WBC 10.10 Hgb 15.0 Hct 45.0 Plt Count 231 PT 10.7 INR 0.97 Sodium 141 Potassium 4.1 BUN 22 H Creatinine 1.15 Glucose 110 H Magnesium 2.3 Total Bilirubin 0.5 AST 29 ALT 45 Alkaline Phosphatase 94 Assessment and Plan - Problems (Diagnosis) (1) Atrial flutter with rapid ventricular response Current Visit: Yes Status: Acute Plan: Atrial flutter with RVR Monitor closely under telemetry Started on metoprolol as needed Cardiology consulted Echocardiogram ordered Hypertension Continue home medications and titrate as needed Hyperlipidemia Continue statin History of CAD Status post stents placement Will trend cardiac enzymes No chest pain at this time GI/DVT prophylaxis Advanced directive full code Discharge Plan: Home Plan to discharge in: 48 Hours - Advance Directives Does patient have a Living Will: No Does patient have a Durable POA for Healthcare: No - Code Status/Comfort Care Code Status: Full Code Time Spent Managing Pts Care (In Minutes): 48
[2023-06-12] MEDS ORDERED: ENOXAPARIN 80 MG/0.8 ML SQ ONE (21:18)
[2023-06-12 22:47] LABS: Thyroid Stimulating Hormone 0.763 uIU/mL (0.358-3.740); Troponin High Sensitivity 32.6 pg/mL (<58.9)
[2023-06-12 23:22] VITALS: O2SAT 99
[2023-06-12 23:49] VITALS: BMI 23.3
[2023-06-13 03:34] LABS: Absolute Basophils 0.1 K/uL (0-0.5); Absolute Eosinophils 0.3 K/uL (0-0.5); Absolute Lymphocytes (CBC) 3.5 K/uL (0.7-4.9); Absolute Monocytes 0.8 K/uL (0.1-1.3); Absolute Neutrophil 5.9 K/uL (1.8-8.0); Basophils % 0.8 % (0-1.3); Eosinophils % 2.7 % (0-4.4); Hematocrit 40.2 % (39.6-49.0); Hemoglobin 13.9 g/dL (13.6-17.9); Lymphocytes % 33.2 % (15.3-44.8); MCH 32.9 pg (27.0-35.0); MCHC 34.5 g/dL (32.0-36.0); MCV 95.3 fL (80-100); MPV 10.4 fL (7.6-11.3); Monocytes % 7.6 % (3.3-12.3); Neutrophils % 55.7 % (41.7-73.7); Nucleated Red Blood Cells % 0.2 % (0-0); Platelets 213 thou/uL (152-406); RBC Red Blood Cell Count 4.22 M/uL (4.33-5.43); Red Cell Distribution Width 13.7 % (12.1-15.2)
[2023-06-13 03:48] LABS: Albumin 3.1 g/dL (3.4-5.0); Albumin/Globulin Ratio 0.9 (1.1-1.8); Anion Gap 6.7 mEq/L (5.0-15.0); Bilirubin Total 0.5 mg/dL (0.2-1.0); Globulin 3.5 g/dL (2.3-3.5); Magnesium 2.5 mg/dL (1.6-2.4); Potassium 3.7 mEq/L (3.5-5.1); Protein, Total 6.6 g/dL (6.4-8.2); Troponin High Sensitivity 53.1 pg/mL (<58.9)
[2023-06-13 04:30] LABS: Specific Gravity 1.024 (1.005-1.030); Urine Bilirubin NEGATIVE (Negative); Urine Blood Negative (Negative); Urine Clarity Clear (Clear); Urine Color Yellow (Yellow); Urine Glucose NEGATIVE (Negative); Urine Ketones NEGATIVE (Negative); Urine Microscopic Reflex YN NO UMIC; Urine Nitrite NEGATIVE (Negative); Urine Protein NEGATIVE (Negative); Urine Urobilinogen 1+ (Normal)
[2023-06-13] MEDS: POTASSIUM CL SA 10 MEQ TAB PO ONE (08:15)
[2023-06-13] MEDS: ENOXAPARIN 40 MG/0.4 ML SQ SCH (08:15)
[2023-06-13] MEDS: PNEUMOCOCCAL VACCINE 0.5 ML IMVAC ONE (12:00)
[2023-06-13 12:36] VITALS: BP 143/88; TEMP 97.1
[2023-06-13] MEDS: METOPROLOL TARTRATE 5 MG/5 ML INJ IV STA (12:42)
[2023-06-13] MEDS: METOPROLOL TAR 25 MG TAB PO SCH (12:42)
--- NOTE | 2023-06-13 13:16 | P.CNS ---
Date of Consult: 06/13/23 Chief Complaint: Palpitation History of Present Illness: Patient with PMH of HTN, HLD, CAD presented with palpitations, denies any chest pain, no SOB, no HUMPHREY, no syncope. Allergies No Known Allergies Allergy (Unverified 06/12/23 21:23) Home Medications: Losartan Potassium 25 mg PO DAILY 06/12/23 Metoprolol Succinate [Toprol Xl*] 25 mg PO DAILY 06/12/23 - Past Medical/Surgical History Diabetic: No -: Hypertension, hyperlipidemia, CAD, history of PCI -: Status post stent placements - Family History Father Medical History: Cancer Notes: asbestosis Mother Medical History: Heart disease - Social History Smoking Status: Current some day smoker Alcohol use: Yes CD- Drugs: Yes Caffeine use: Yes Place of Residence: Home Review of Systems 10-point ROS is otherwise unremarkable Physical Examination Temp Pulse Resp BP Pulse Ox 97.1 F 125 H 16 143/88 H 97 06/13/23 12:00 06/13/23 12:00 06/13/23 12:00 06/13/23 12:00 06/13/23 12:00 General: Alert Neck: Supple Respiratory: Clear to auscultation bilaterally Cardiovascular: No edema, Irregular heart rate/rhythm Gastrointestinal: Normal bowel sounds Laboratory Data (last 24 hrs) 06/12/23 06/12/23 06/12/23 18:35 18:35 18:35 WBC 10.10 Hgb 15.0 Hct 45.0 Plt Count 231 PT 10.7 INR 0.97 Sodium 141 Potassium 4.1 BUN 22 H Creatinine 1.15 Glucose 110 H Magnesium 2.3 Total Bilirubin 0.5 AST 29 ALT 45 Alkaline Phosphatase 94 - Problems (1) HTN (hypertension) Current Visit: Yes Status: Acute Plan: Patient BP is WNL, continue patient home medications. (2) HLD (hyperlipidemia) Current Visit: Yes Status: Acute Plan: get lipid panel. (3) Atrial flutter with rapid ventricular response Current Visit: Yes Status: Acute Plan: Metoprolol 5 mg IV X1 Continue Lopressor 25 mg po BID repeat EKG.
--- NOTE | 2023-06-13 14:37 | EKG ---
Test Date: 2023-06-13 Test Time: 01:35:35 Ladle Puller: NAVEED MEASUREMENT RESULTS: Intervals: Rate: 118 LA: QRSD: 84 QT: 352 QTc: 493 [place]: P: LA: QRS: -56 T: 117 INTERPRETIVE STATEMENTS: Atrial flutter with rapid ventricular response. Left anterior fascicular block Moderate voltage criteria for LVH, may be normal variant Anteroseptal infarct, age undetermined Abnormal ECG Compared to ECG 06/12/2023 21:14:43 Accelerated junctional rhythm now present Left anterior fascicular block now present Left ventricular hypertrophy now present Left-axis deviation no longer present T-wave abnormality no longer present Possible ischemia no longer present Myocardial infarct finding still present Electronically Signed On 06-13-23 14:37:01 CDT by Harris Gardner
--- NOTE | 2023-06-13 14:38 | EKG ---
Test Date: 2023-06-12 Test Time: 21:14:43 Transplant Worker: MEASUREMENT RESULTS: Intervals: Rate: 61 MT: 166 QRSD: 86 QT: 440 QTc: 442 [place]: P: 78 MT: 166 QRS: -37 T: -90 INTERPRETIVE STATEMENTS: Normal sinus rhythm with sinus arrhythmia Left axis deviation Septal infarct, age undetermined T wave abnormality, consider inferolateral ischemia Abnormal ECG Compared to ECG 06/12/2023 18:20:45 Left-axis deviation now present Myocardial infarct finding now present T-wave abnormality now present Possible ischemia now present Supraventricular tachycardia no longer present Left anterior fascicular block no longer present Left ventricular hypertrophy no longer present Electronically Signed On 06-13-23 14:37:21 CDT by Harris Gardner
--- NOTE | 2023-06-13 14:39 | EKG ---
Test Date: 2023-06-12 Test Time: 18:20:45 Construction Tech: POOJA MEASUREMENT RESULTS: Intervals: Rate: 138 MS: QRSD: 80 QT: 334 QTc: 506 [place]: P: MS: QRS: -58 T: 87 INTERPRETIVE STATEMENTS: Supraventricular tachycardia Left anterior fascicular block Voltage criteria for left ventricular hypertrophy Abnormal ECG Compared to ECG 11/30/2022 20:44:05 Sinus rhythm no longer present Atrial abnormality no longer present Myocardial infarct finding no longer present ST (T wave) deviation no longer present Possible ischemia no longer present Electronically Signed On 06-13-23 14:37:36 CDT by Harris Gardner
--- NOTE | 2023-06-13 15:06 | P.DS ---
Admission Date: 06/12/23 Discharge Date: 06/13/23 Disposition: ROUTINE DISCHARGE Discharge Condition: FAIR Reason for Admission: Palpitation Brief History of Present Illness: 72-year-old male with past medical history hypertension, hyperlipidemia, CAD status post PCI and stent placement , TIA presented to the ER with palpitation. Patient reported intermittent palpitation of 1 day duration, he denied any chest or shortness of breath. Patient reported history of cardiac arrhythmia and follows up with a forming press operator in [place] Patient was assessed in the ER and was found to be atrial flutter with 2 is to 1 block and was admitted for further management. Hospital Course: Diagnosis Atrial flutter Essential hypertension Hyperlipidemia Coronary artery disease. Patient was placed under observation on the medical floor and treated with oral metoprolol. He received a dose of IV metoprolol during the hospital stay. Patient was seen and evaluated by cardiology Dr. Bowei who recommended patient to continue oral metoprolol. Patient has been sinus bradycardia, he is asymptomatic and request to go home and follow-up with his forming press operator. Patient is discharged per his request. Vital Signs/Physical Exam: Temp Pulse Resp BP Pulse Ox 97.1 F 125 H 16 143/88 H 97 06/13/23 12:00 06/13/23 12:00 06/13/23 12:00 06/13/23 12:00 06/13/23 12:00 General: Alert, In no apparent distress, Oriented x3 HEENT: Mucous membr. moist/pink Neck: JVD not distended, No Thyromegaly Respiratory: Clear to auscultation bilaterally, Normal air movement Cardiovascular: No edema, Regular rate/rhythm, Normal S1 S2 Gastrointestinal: Normal bowel sounds, Soft and benign, Non-distended, No tenderness Musculoskeletal: No swelling, No tenderness Integumentary: No rashes, No cyanosis Neurological: Normal strength at 5/5 x4 extr Laboratory Data at Discharge: WBC 10.50 thou/uL (4.3-10.9) 06/13/23 02:27 Hgb 13.9 g/dL (13.6-17.9) 06/13/23 02:27 Hct 40.2 % (39.6-49.0) 06/13/23 02:27 Plt Count 213 thou/uL (152-406) 06/13/23 02:27 PT 10.7 SECONDS (9.5-12.5) 06/12/23 18:35 INR 0.97 06/12/23 18:35 Sodium 141 mEq/L (136-145) 06/13/23 02:27 Potassium 3.7 mEq/L (3.5-5.1) 06/13/23 02:27 BUN 22 mg/dL (7-18) H 06/13/23 02:27 Creatinine 1.10 mg/dL (0.70-1.30) 06/13/23 02:27 Glucose 108 mg/dL (74-106) H 06/13/23 02:27 Phosphorus 4.0 mg/dL (2.5-4.9) 06/13/23 02:27 Magnesium 2.5 mg/dL (1.6-2.4) H 06/13/23 02:27 Total Bilirubin 0.5 mg/dL (0.2-1.0) 06/13/23 02:27 AST 29 U/L (15-37) 06/13/23 02:27 ALT 41 U/L (16-61) 06/13/23 02:27 Alkaline Phosphatase 84 U/L (45-117) 06/13/23 02:27 Home Medications: Losartan Potassium 25 mg PO DAILY 06/12/23 Metoprolol Succinate [Toprol Xl*] 25 mg PO DAILY 06/12/23 Diet: AHA Activity: Ad joan Followup: BOSTON MEAD [Primary Care Provider] - 1-2 Weeks Time spent managing pt's care (in minutes): 27
--- NOTE | 2023-06-14 06:59 | ECHO ---
HEIGHT: 5 ft 8 in WEIGHT: 140 lb 0 oz DATE OF STUDY: 06/13/[address]: Dylan Huston DO 2-DIMENSIONAL: YES M.MODE: YES DOPPLER: YES COLOR FLOW: YES TDS: PORTABLE: YES DEFINITY: BUBBLE STUDY: DIAGNOSIS: ATRIAL FLUTTER CARDIAC HISTORY: CATHERIZATION: SURGERY: PROSTHETIC VALVE: PACEMAKER: MEASUREMENTS (cm) DIASTOLIC (NORMALS) SYSTOLIC (NORMALS) IVSd 1.2 (0.6-1.2) LA Diam 3.5 (1.9-4.0) LVEF 30% LVIDd 4.1 (3.5-5.7) LVIDs 3.4 (2.0-3.5) %FS 18% LVPWd 1.3 (0.6-1.2) Ao Diam 2.6 (2.0-3.7) 2 DIMENSIONAL ASSESSMENT: RIGHT ATRIUM: NORMAL LEFT ATRIUM: NORMAL RIGHT VENTRICLE: NORMAL LEFT VENTRICLE: DEPRESSED EJECTION FRACTION TRICUSPID VALVE: MILD TRICUSPID REGURGITATION MITRAL VALVE: MILD MITRAL REGURGITATION PULMONIC VALVE: NORMAL AORTIC VALVE: MILD AORTIC STENOSIS PERICARDIAL EFFUSION: NONE AORTIC ROOT: NORMAL LEFT VENTRICULAR WALL MOTION: MODERATE GLOBAL HYPOKINESIS DOPPLER/COLOR FLOW: SEE BELOW COMMENTS: 1. MODERATELY DEPRESSED LEFT VENTRICULAR EJECTION FRACTION 30-35% 2. MODERATE GLOBAL HYPOKINESIS 3. MILD MITRAL REGURGITATION 4. MILD TRICUSPID REGURGITATION 5. MILD AORTIC INSUFFICIENCY 6. 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
--- NOTE | 2023-06-15 13:09 | EKG ---
Test Date: 2023-06-13 Test Time: 12:23:09 Health Claims Examiner: IVAN MEASUREMENT RESULTS: Intervals: Rate: 128 [place]: QRSD: 82 QT: 326 QTc: 475 [place]: P: RI: QRS: -56 T: 89 INTERPRETIVE STATEMENTS: Atrial flutter with RVR Left anterior fascicular block Voltage criteria for left ventricular hypertrophy Cannot rule out Septal infarct, age undetermined Abnormal ECG Compared to ECG 06/13/2023 01:35:35 Myocardial infarct finding still present Electronically Signed On 06-15-23 13:07:49 CDT by Harris Gardner
== END 2023-06-13 16:28 | disposition home or self-care (01) ==
LOC: ER 18:07 → 2ND 21:01 → INTOOBSV 21:01
PROVIDERS: ADMIT Family Medicine; ATTEND Internal Medicine
DX: I48.20 Chronic atrial fibrillation, unspecified (principal); I25.10 Atherosclerotic heart disease of native coronary artery without angina pectoris; I10 Essential (primary) hypertension; E78.5 Hyperlipidemia, unspecified; Z95.5 Presence of coronary angioplasty implant and graft; Z86.73 Personal history of transient ischemic attack (TIA), and cerebral infarction without residual deficits
CPT/HCPCS: 96365; 93005 ×4; 93306; 85025 ×2; 80048; 36415 ×2; 83735 ×2; 84100; 85610; 80076; 84443; 81003; 84484 ×4; 80053; 83880; 71045; 96375; 96372; 99285; J3475; J1650; J7040; G0378 ×3

== ENCOUNTER 2023-06-16 05:37 | Observation (INO) | payer OTHER ==
[2023-06-16] MEDS ORDERED: NA CHLORIDE 0.9% 1,000 ML ONE ×2 (05:50→06:08)
[2023-06-16] MEDS ORDERED: ADENOSINE 6 MG/ 2ML VIAL IV ONE (05:50)
[2023-06-16] MEDS ORDERED: ONDANSETRON 4 MG/2 ML VIAL ONE (06:07)
[2023-06-16] MEDS ORDERED: MAGNESIUM SULFATE 1 gm IVPB 1 GM/100 ML BAG IV ONE (07:31)
[2023-06-16] MEDS ORDERED: METOPROLOL TAR 25 MG TAB ONE (07:31)
--- NOTE | 2023-06-16 08:03 | EDPHYS ---
Physician Documentation [facility] Name: Raphael Groves Age: 72 yrs Sex: Male : 1950 Arrival Date: 06/16/2023 Time: 05:37 Bed 4 Private MD: ED Physician Jun Balbuena HPI: 06/15 05:42 This 72 yrs old Male presents to ER via Unassigned with complaints of sp4 ELEVATED HEART RATE, Weakness. 06:01 9-year-old male presents with acute onset of palpitations on awakening this morning sp4 associated with generalized weakness. Patient on arrival was tachycardic at the rate of 150. Patient reports history of prior SVT with prior management with IV adenosine. . 06:07 Past medical history positive for hypertension, hyperlipidemia, coronary artery disease sp4 status post PCI and stent, TIA. Last admission 06/12/2023 through 06/13/2023 medications include metoprolol 25 p.o. daily and losartan 25 p.o. daily. . Historical: - Allergies: 05:53 No Known Allergies; rv - PMHx: 05:53 Hypercholesterolemia; Hypertensive disorder; rv - PSHx: 05:53 Stented artery; rv - Immunization history:: Adult Immunizations up to date. - Infectious Disease History:: Denies. - Social history:: Smoking status: Patient denies any tobacco usage or history of. - Family history:: not pertinent. ROS: 06:01 Constitutional: Negative for fever, chills, and weight loss, positive for palpitations sp4 and generalized weakness 06:01 All other systems are negative, Exam: 06:01 Constitutional: This is a well developed, well nourished patient who is awake, alert, sp4 and in no acute distress. Head/Face: Normocephalic, atraumatic. Eyes: Pupils equal round and reactive to light, extra-ocular motions intact. Lids and lashes normal. Conjunctiva and sclera are not injected. Cornea within normal limits. Periorbital areas with no swelling, redness, or edema. ENT: Nares patent. No nasal discharge, no septal abnormalities noted. Tympanic membranes are normal and external auditory canals are clear. Oropharynx with no redness, swelling, or masses, exudates, or evidence of obstruction, uvula midline. Mucous membranes moist. Neck: Trachea midline, no thyromegaly or masses palpated, and no cervical lymphadenopathy. Supple, full range of motion without nuchal rigidity, or vertebral point tenderness. Chest/axilla: Normal chest wall appearance and motion. Nontender with no deformity. No lesions are appreciated. Cardiovascular: Positive rapid tachycardia at the rate of 150, regular tachycardia. no gallops, murmurs, or rubs. Normal PMI, no JVD. No pulse deficits. Respiratory: Lungs have equal breath sounds bilaterally, clear to auscultation and percussion. No rales, rhonchi or wheezes noted. No increased work of breathing, no retractions or nasal flaring. Abdomen/GI: Soft, with normal bowel sounds. No distension or tympany. No guarding or rebound. No evidence of tenderness throughout. Back: No spinal tenderness. No costovertebral tenderness. Male : Normal genitalia with no discharge or lesions. Skin: Warm, dry with normal turgor. Normal color with no rashes, no lesions, and no evidence of cellulitis. MS/ Extremity: Pulses equal, no cyanosis. Neurovascular intact. Full, normal range of motion. Neuro: Awake and alert, GCS 15, oriented to person, place, time, and situation. Cranial nerves II-XII grossly intact. Motor strength 5/5 in all extremities. Sensory grossly intact. Psych: Awake, alert, with orientation to person, place and time. Behavior, mood, and affect are within normal limits 06:01 ECG was reviewed by the Attending Physician. EKG time 0 548, SVT at the rate of 155 06:01 Repeat EKG after adenosine injection. EKG 0601 there is normal sinus rhythm at a rate of [address] elevation or depression. No ectopy Vital Signs: 05:52 BP 108 / 91; Pulse 156; Resp 18; Temp 98; Pulse Ox 100% ; rv 06:07 BP 139 / 81; Pulse 61; Resp 15; Pulse Ox 99% on R/A; MAP 98 mmHg; Pain 0/10; tm6 06:20 BP 159 / 80; Pulse 60; Resp 16; Pulse Ox 98% on R/A; km8 06:45 BP 156 / 76; Pulse 61; Resp 16; Pulse Ox 100% on R/A; km8 07:27 BP 132 / 69; Pulse 61; Resp 18; Pulse Ox 100% on R/A; ph 08:14 BP 138 / 91; Pulse 59; Resp 18; Pulse Ox 98% on R/A; ph 08:55 BP 142 / 97; Pulse 57; Resp 18; Pulse Ox 98% on R/A; ph 06:07 Pain Scale: Adult tm6 Ezra Coma Score: 06:01 Eye Response: spontaneous(4). Motor Response: obeys commands(6). Verbal Response: sp4 oriented(5). Total: 15. Procedures: 06:05 Cardioversion: Chemical cardioversion with IV adenosine. Patient was given 12 mg IV sp4 adenosine. SVT cardioverted into SR with normal sinus rhythm at the rate of 64. No complications. MDM: 05:42 Patient medically screened. sp4 06:50 Data reviewed: vital signs, nurses notes. Transition of care: After a detail discussion sp4 of the patient's case, care is transferred to Jun Balbuena MD. ED course: Patient may warrant admission for further management and observation. . 06/15 05:41 Order name: Basic Metabolic Panel; Complete Time: 08:46 sp4 06/15 05:41 Order name: CBC with Diff sp4 06/15 05:41 Order name: LFT's; Complete Time: 08:46 sp4 06/15 05:41 Order name: Magnesium; Complete Time: 08:46 sp4 06/15 05:41 Order name: NT PRO-BNP; Complete Time: 08:46 sp4 06/15 05:41 Order name: PT-INR sp4 06/15 05:41 Order name: Troponin HS; Complete Time: 08:46 sp4 06/15 07:12 Order name: TSH; Complete Time: 08:46 bharti 06/15 09:34 Order name: Basic Metabolic Panel EDMS 06/15 09:34 Order name: Basic Metabolic Panel EDMS 06/15 09:34 Order name: CBC with Automated Diff EDMS 06/15 09:34 Order name: CBC with Automated Diff EDMS 06/15 09:34 Order name: Magnesium EDMS 06/15 09:34 Order name: Magnesium EDMS 06/15 09:34 Order name: Phosphorus EDMS 06/15 09:34 Order name: Phosphorus EDMS 06/15 09:34 Order name: Troponin High Sensitivity EDMS 06/15 09:34 Order name: Troponin High Sensitivity EDMS 06/15 09:34 Order name: Troponin High Sensitivity EDMS 06/15 05:41 Order name: XRAY Chest (1 view) [facility] 06/15 05:41 Order name: Cardiac monitoring; Complete Time: 06:03 4 06/15 05:41 Order name: EKG - Nurse/Tech; Complete Time: 06:03 4 06/15 05:41 Order name: IV Saline Lock; Complete Time: 06:03 [facility] 06/15 05:41 Order name: Labs collected and sent; Complete Time: 06:03 4 06/15 05:41 Order name: O2 Per Protocol; Complete Time: 06:03 4 06/15 05:41 Order name: O2 Sat Monitoring; Complete Time: 06:03 4 EC:01 Rate is 155 beats/min. Rhythm is regular, SVT. Clinical impression: SVT. Interpreted by sp4 me. Reviewed by me. Administered Medications: 06:00 Drug: NS 0.9% IV 1000 ml IV at 1 bolus Per protocol; 1000 mL bolus Route: IV; Rate: 1 km8 bolus; Site: left forearm; 09:13 Follow up: Response: No adverse reaction; IV Status: Completed infusion mb9 06:00 Drug: Adenocard IVP 12 mg IVP once Route: IVP; Site: left forearm; km8 06:04 Follow up: Response: Cardiac rhythm changed km8 06:14 Drug: Ondansetron IVP 4 mg IVP once; over 2 minutes Route: IVP; Site: left forearm; km8 06:59 Follow up: Response: No adverse reaction 8 06:14 Drug: NS 0.9% IV 1000 ml IV at 125 ml/hr continuous Route: IV; Rate: 125 ml/hr; Site: [facility] left forearm; 09:13 Follow up: Response: No adverse reaction; IV Status: Completed infusion; Infusion mb9 continued upon admission 07:00 Not Given (Physician Discretion): metoprolol5 mg IVP every 5 minutes; Hold for SBP < km8 100 or HR < 60. x3 07:39 Drug: Magnesium Sulfate IVPB 1 grams IVPB once over 1 hrs Route: IVPB; Infused Over: 1 ph hrs; Site: left forearm; 09:13 Follow up: Response: No adverse reaction; IV Status: Completed infusion mb9 09:29 Not Given (Hemodynamic Parameters): [id number] mg PO once mb9 Disposition Summary: 06/16/23 08:47 Hospitalization Ordered Notes: Hospitalization Status: Observation(06/16/23 08:47) bharti Provider: Werner Freeman(06/16/23 08:47) bharti Location: Telemetry/MedSurg (observation)(06/16/23 08:47) bharti Condition: Stable(06/16/23 08:47) bharti Problem: new(06/16/23 08:47) bharti Symptoms: have improved(06/16/23 08:47) bharti Bed/Room Type: Standard(06/16/23 08:47) bharti Room Assignment: 420(06/16/23 09:56) em1 Diagnosis - Supraventricular tachycardia(06/16/23 08:47) bharti - Weakness(06/16/23 08:47) bharti - Syncope Near(06/16/23 08:47) bharti Forms: - Medication Reconciliation Form bharti - SBAR form bharti - Leadership Thank You Letter bharti Signatures: Dispatcher [employer] EDMS Jun Balbuena MD MD cha Martinez, Eric em1 Lorri Moore RN RN Mundo Hauser RN RN Peyman Anthony MD MD sp4 Sadie Garcia RN RN km8 Aurea Colbert RN mb9 Corrections: (The following items were deleted from the chart) 05:42 05:42 BASIC METABOLIC PANEL+C.LAB.BRZ ordered. EDMS EDMS 05:42 05:42 CBC+H.LAB.BRZ ordered. EDMS EDMS 05:42 05:42 HEPATIC FUNCTION+C.LAB.BRZ ordered. EDMS EDMS 05:42 05:42 MAGNESIUM+C.LAB.BRZ ordered. EDMS EDMS 05:42 05:42 PROBNP+C.LAB.BRZ ordered. EDMS EDMS 05:42 05:42 PROTIME (+INR)+COAG.LAB.BRZ ordered. EDMS EDMS 05:42 05:42 Troponin High Sensitivity+C.LAB.BRZ ordered. EDMS EDMS 05:42 05:42 Chest Single View+RAD.RAD.BRZ ordered. EDMS EDMS 07:13 07:13 THYROID STIMULAT HORMONE+C.LAB.BRZ ordered. EDMS EDMS 08:46 08:02 Observation bharti bharti 08:46 08:02 Werner Freeman bharti bharti 08:46 08:02 Telemetry/MedSurg (observation) bharti bharti 08:46 08:02 Fair bharti bharti 08:46 08:02 new bharti bharti 08:46 08:02 have improved bharti bharti 08:46 08:02 Standard bharti bharti :46 08:02 bharti bharti 08:46 08:02 Weakness bharti bharti 08:46 08:02 Supraventricular tachycardia bharti bharti 08:46 08:02 Syncope Near bharti bharti 09:56 08:47 bharti em1
--- NOTE | 2023-06-16 08:03 | ER ---
Nurse's Notes [facility] Name: Raphael Groves Age: 72 yrs Sex: Male : 1950 Arrival Date: 06/16/2023 Time: 05:37 Bed 4 Private MD: Diagnosis: Supraventricular tachycardia;Weakness;Syncope Near Presentation: 06/15 05:52 Chief complaint: Patient states: sudden onset of palpitations, denies chest pain and rv sob. Coronavirus screen: At this time, the client does not indicate any symptoms associated with coronavirus-19. Ebola Screen: No symptoms or risks identified at this time. 05:52 Method Of Arrival: Ambulatory rv 05:53 Initial Sepsis Screen: Does the patient meet any 2 criteria? No. Patient's initial rv sepsis screen is negative. Does the patient have a suspected source of infection? No. Patient's initial sepsis screen is negative. Risk Assessment: Do you want to hurt yourself or someone else? Patient reports no desire to harm self or others. Onset of symptoms was June 16, 2023. 05:53 Acuity: MAHESH 1 rv Triage Assessment: 05:53 General: Appears uncomfortable, Behavior is calm, cooperative. Pain: Denies pain. rv Neuro: Level of Consciousness is awake, alert, obeys commands, Oriented to person, place, time, situation. Cardiovascular: Capillary refill < 3 seconds Patient's skin is warm and dry. Cardiovascular: Reports fatigue, palpitations, Rhythm is SVT Chest pain is denied. Respiratory: Airway is patent Respiratory effort is even, unlabored. GI: No signs and/or symptoms were reported involving the gastrointestinal system. Derm: Skin is intact. Historical: - Allergies: 05:53 No Known Allergies; rv - PMHx: 05:53 Hypercholesterolemia; Hypertensive disorder; rv - PSHx: 05:53 Stented artery; rv - Immunization history:: Adult Immunizations up to date. - Infectious Disease History:: Denies. - Social history:: Smoking status: Patient denies any tobacco usage or history of. - Family history:: not pertinent. Screenin:54 [facility] ED Fall Risk Assessment (Adult) History of falling in the last 3 months, rv including since admission No falls in past 3 months (0 pts) Score/Fall Risk Level 0 - 2 = Low Risk Oriented to surroundings, Maintained a safe environment, Educated pt \T\ family on fall prevention, incl call for assistance when getting out of bed, Assessed \T\ reinforced patient's understanding of fall precautions. Abuse screen: Denies threats or abuse. Denies injuries from another. Nutritional screening: No deficits noted. Tuberculosis screening: No symptoms or risk factors identified. Assessment: 05:50 Cardiovascular: Rhythm is SVT. tm6 06:00 Cardiovascular: Rhythm is sinus rhythm. tm6 06:04 General: Appears in no apparent distress. Behavior is calm, cooperative. Pain: Denies tm6 pain. Neuro: Level of Consciousness is awake, alert, obeys commands, Oriented to person, place, time, situation. Cardiovascular: Denies chest pain, Parent/caregiver reports patient has had palpitations, shortness of breath. 06:05 Respiratory: Airway is patent Respiratory effort is even, unlabored, Respiratory tm6 pattern is regular, symmetrical. GI: Abdomen is flat, non-distended. : No signs and/or symptoms were reported regarding the genitourinary system. EENT: No signs and/or symptoms were reported regarding the EENT system. Derm: No signs and/or symptoms reported regarding the dermatologic system. Musculoskeletal: No signs and/or symptoms reported regarding the musculoskeletal system. 06:52 Reassessment: Patient appears in no apparent distress at this time. No changes from km8 previously documented assessment. Patient and/or family updated on plan of care and expected duration. Pain level reassessed. Patient is alert, oriented x 3, equal unlabored respirations, skin warm/dry/pink. 07:40 Reassessment: Patient appears in no apparent distress at this time. Patient and/or ph family updated on plan of care and expected duration. Pain level reassessed. Pt resting w/ eyes closed, VS WNL. 09:15 General: Appears in no apparent distress. Behavior is calm, cooperative. Pain: Denies mb9 pain. Neuro: Level of Consciousness is awake, alert, obeys commands, Oriented to person, place, time, situation, Appropriate for age. Cardiovascular: Heart tones S1 S2 present Patient's skin is warm and dry. Rhythm is regular. Respiratory: Airway is patent Respiratory effort is even, unlabored, Respiratory pattern is regular, symmetrical, Breath sounds are clear bilaterally. GI: Abdomen is flat, non-distended, Patient currently denies nausea, vomiting. : No signs and/or symptoms were reported regarding the genitourinary system. EENT: No signs and/or symptoms were reported regarding the EENT system. Derm: Skin is pink, warm \T\ dry. Musculoskeletal: Range of motion: intact in all extremities. Vital Signs: 05:52 BP 108 / 91; Pulse 156; Resp 18; Temp 98; Pulse Ox 100% ; rv 06:07 BP 139 / 81; Pulse 61; Resp 15; Pulse Ox 99% on R/A; MAP 98 mmHg; Pain 0/10; tm6 06:20 BP 159 / 80; Pulse 60; Resp 16; Pulse Ox 98% on R/A; km8 06:45 BP 156 / 76; Pulse 61; Resp 16; Pulse Ox 100% on R/A; km8 07:27 BP 132 / 69; Pulse 61; Resp 18; Pulse Ox 100% on R/A; ph 08:14 BP 138 / 91; Pulse 59; Resp 18; Pulse Ox 98% on R/A; ph 08:55 BP 142 / 97; Pulse 57; Resp 18; Pulse Ox 98% on R/A; ph 06:07 Pain Scale: Adult tm6 Vitals: 07:27 Cardiac Rhythm Assessment Sinus rhythm. ph Manson Coma Score: 06:01 Eye Response: spontaneous(4). Motor Response: obeys commands(6). Verbal Response: sp4 oriented(5). Total: 15. ED Course: 05:40 Patient arrived in ED. gm2 05:41 Peyman Anthony MD is Attending Physician. sp4 05:51 Mundo Ojeda RN is Primary Nurse. rv 05:53 Triage completed. rv 05:53 Arm band placed on right wrist. rv 05:54 Patient has correct armband on for positive identification. Client placed on continuous rv cardiac and pulse oximetry monitoring. NIBP monitoring applied. 05:54 No provider procedures requiring assistance completed. rv 06:03 Basic Metabolic Panel Sent. tm6 06:03 CBC with Diff Sent. tm6 06:03 LFT's Sent. tm6 06:03 Magnesium Sent. tm6 06:03 NT PRO-BNP Sent. tm6 06:03 PT-INR Sent. tm6 06:03 Troponin HS Sent. tm6 06:03 Inserted saline lock: 20 gauge in left wrist, using aseptic technique. tm6 06:04 Missed attempt(s): 20 gauge in right forearm. Bleeding controlled, band aid applied, rv1 catheter tip intact. 06:04 Missed attempt(s): 20 gauge forearm. Bleeding controlled, band aid applied, catheter rv1 tip intact. 06:05 Provided Education on: use of call vital. environmental monitoring technician on. Pulse ox on. NIBP on. tm6 06:41 XRAY Chest (1 view) In Process Unspecified. EDMS 07:16 Attending Physician role handed off by Peyman Anthony MD bharti 07:16 Jun Balbuena MD is Attending Physician. bharti 08:01 Wrener Freeman MD is Hospitalizing Provider. bharti 08:47 Federico Freeman MD is Hospitalizing Provider. bharti 08:47 Hospitalizing Provider role handed off by Federico Freeman MD bharti 08:47 Werner Freeman MD is Hospitalizing Provider. bharti 09:12 Patient admitted, IV remains in place. mb9 Administered Medications: 06:00 Drug: NS 0.9% IV 1000 ml IV at 1 bolus Per protocol; 1000 mL bolus Route: IV; Rate: 1 km8 bolus; Site: left forearm; 09:13 Follow up: Response: No adverse reaction; IV Status: Completed infusion mb9 06:00 Drug: Adenocard IVP 12 mg IVP once Route: IVP; Site: left forearm; km8 06:04 Follow up: Response: Cardiac rhythm changed km8 06:14 Drug: Ondansetron IVP 4 mg IVP once; over 2 minutes Route: IVP; Site: left forearm; 8 06:59 Follow up: Response: No adverse reaction [facility] 06:14 Drug: NS 0.9% IV 1000 ml IV at 125 ml/hr continuous Route: IV; Rate: 125 ml/hr; Site: [facility] left forearm; 09:13 Follow up: Response: No adverse reaction; IV Status: Completed infusion; Infusion mb9 continued upon admission 07:00 Not Given (Physician Discretion): metoprolol5 mg IVP every 5 minutes; Hold for SBP < km8 100 or HR < 60. x3 07:39 Drug: Magnesium Sulfate IVPB 1 grams IVPB once over 1 hrs Route: IVPB; Infused Over: 1 ph hrs; Site: left forearm; 09:13 Follow up: Response: No adverse reaction; IV Status: Completed infusion mb9 09:29 Not Given (Hemodynamic Parameters): natmdyrhem90 mg PO once mb9 Medication: 05:54 VIS not applicable for this client. rv Outcome: 08:02 Decision to Hospitalize by Provider. bharti 08:47 Decision to Hospitalize by Provider. bharti 10:51 Admitted to Tele accompanied by tech, via stretcher, room 420, mb9 10:51 Condition: stable 10:51 Instructed on the need for admit, 10:55 Patient left the ED. mb9 Signatures: Dispatcher [employer] EDJun Ravi MD MD cha Hall, Patricia, RN RN Mundo Ojeda RN RN rv Filemon, Aurea Urias RN RN mb9 Marcelle Mena rv1 Peyman Anthony MD MD sp4 Elizabeth Hull gm2 Sadie Garcia RN RN km8 Abelardo Casillas RN RN tm6 Corrections: (The following items were deleted from the chart) 06:05 05:53 Acuity: MAHESH 2 rv rv
[2023-06-16 08:42] LABS: Albumin 3.2 g/dL (3.4-5.0); Albumin/Globulin Ratio 0.9 (1.1-1.8); Anion Gap 8.7 mEq/L (5.0-15.0); Bilirubin Direct 0.2 mg/dL (0-0.2); Bilirubin Indirect, Calculated 0.3 mg/dL (0.2-0.8); Bilirubin Total 0.5 mg/dL (0.2-1.0); Globulin 3.4 g/dL (2.3-3.5); Magnesium 2.3 mg/dL (1.6-2.4); Potassium 3.7 mEq/L (3.5-5.1); Protein, Total 6.6 g/dL (6.4-8.2); Troponin High Sensitivity 36.9 pg/mL (<58.9)
[2023-06-16 09:07] LABS: Absolute Basophils 0.1 K/uL (0-0.5); Absolute Eosinophils 0.2 K/uL (0-0.5); Absolute Lymphocytes (CBC) 2.9 K/uL (0.7-4.9); Absolute Monocytes 0.6 K/uL (0.1-1.3); Absolute Neutrophil 3.8 K/uL (1.8-8.0); Basophils % 0.8 % (0-1.3); Eosinophils % 2.1 % (0-4.4); Hematocrit 38.9 % (39.6-49.0); MCH 32.1 pg (27.0-35.0); MCHC 33.4 g/dL (32.0-36.0); MCV 96.1 fL (80-100); MPV 9.8 fL (7.6-11.3); Monocytes % 8.4 % (3.3-12.3); Neutrophils % 50.7 % (41.7-73.7); Platelets 191 thou/uL (152-406); RBC Red Blood Cell Count 4.04 M/uL (4.33-5.43); Red Cell Distribution Width 13.6 % (12.1-15.2)
[2023-06-16 09:08] LABS: PT Prothrombin Time 11.2 SECONDS (9.5-12.5); Protime INR 1.02
[2023-06-16] MEDS ORDERED: ONDANSETRON 4 MG/2 ML VIAL IV PRN (09:22)
--- NOTE | 2023-06-16 09:40 | P.HP ---
Certification for Inpatient Patient admitted to: Observation With expected LOS: <2 Midnights Patient will require the following post-hospital care: None Practitioner: I am a practitioner with admitting privileges, knowledge of patient current condition, hospital course, and medical plan of care. Services: Services provided to patient in accordance with Admission requirements found in Title 42 Section 412.3 of the Code of Federal Regulations Patient History Date of Service: 06/16/23 Reason for admission: SVT cardioverted with adenosine History of Present Illness: Raphael Groves is a 72 year old male with Pmhx of Hypercholesterolemia, Hypertensive disorder, CAD status post PCI and stent, and TIA who presents to the ED with chief complaint of generalized weakness and elevated heart rate. He reports seeing cardiology in [place], he is visiting his friend in the area and will not be back to [place] for a few weeks. Upon arrival to the ED his heart rate was 150 requiring adenosine push, he tolerated well and converted to sinus rhythm. On evaluation heart rate is 63. Of note, he was previously admitted on 5 06/27/2023 for heart palpitations and discharged 06/13/2023 per his request. 06/12 EKG showing EF 30%, mild mitral and tricuspid regurgitation, mild aortic insufficiency, severe pulmonary hypertension with right ventricular systolic pressure greater than 60. Initial vitals BP 108 / 91; Pulse 156; Resp 18; Temp 98; Pulse Ox 100% Laboratory evaluation BUN/creatinine 23/1.11, GFR 71, serum glucose 116, troponin 36.9/31.5, BNP 1540 Chest x-ray reports "The heart is borderline in size. Lungs are clear without consolidation, atelectasis, mass or edema. There is no pleural effusion. There is no pneumothorax. There are no acute osseous findings. IMPRESSION: Clear lungs" Raphael will be admitted to hospital service for further evaluation, responded well to treatment of SVT in the ED, Dr. Bowie consulted. Allergies No Known Allergies Allergy (Unverified 06/12/23 21:23) Home Medications: Losartan Potassium 25 mg PO DAILY 06/12/23 Metoprolol Succinate [Toprol Xl*] 25 mg PO DAILY 06/12/23 - Past Medical/Surgical History Diabetic: No -: Hypertension, hyperlipidemia, CAD, history of PCI -: Status post stent placements - Family History Father -: Cancer Notes: asbestosis Mother -: Heart disease - Social History Smoking Status: Never smoker Alcohol use: Yes CD- Drugs: Yes Caffeine use: Yes Review of Systems General: Weakness Cardiovascular: Palpitations, Other (chest tightness) Physical Examination - Physical Exam General: Alert, In no apparent distress, Oriented x3 HEENT: Atraumatic, Normocephalic, PERRLA Neck: Supple, 2+ carotid pulse no bruit, JVD not distended Respiratory: Clear to auscultation bilaterally, Normal air movement Cardiovascular: No edema, Normal pulses, Regular rate/rhythm, Normal S1 S2 Capillary refill: <2 Seconds Gastrointestinal: Normal bowel sounds, Soft and benign Musculoskeletal: No swelling, No contractures Integumentary: No rashes Neurological: Normal speech, Normal strength at 5/5 x4 extr - Studies Laboratory Data (last 24 hrs) 06/16/23 06/16/23 06/16/23 08:50 08:50 08:06 WBC 7.50 Hgb 13.0 L Hct 38.9 L Plt Count 191 PT 11.2 INR 1.02 Sodium 141 Potassium 3.7 BUN 23 H Creatinine 1.11 Glucose 116 H Magnesium 2.3 Total Bilirubin 0.5 AST 26 ALT 42 Alkaline Phosphatase 82 Assessment and Plan - Plan Assessment and plan Symptomatic Arrhythmia History HTN CAD status post PCI and stent Admit to observation 06/12 EKG showing EF 30%, mild mitral and tricuspid regurgitation, mild aortic insufficiency, severe pulmonary hypertension with right ventricular systolic pressure greater than 60. Continuous telemetry Cardioverted with adenosine in ED HR 63 on examination Trend troponin, 36.9/31.5 metoprolol IV PRN for HR > 120 Continue home dose metoprolol and losartan Cardiology consulted- Dr. Bowie started flecainide Sees cardiology in [place] where he lives, will not return to [place] for a few weeks Hypercholesterolemia Continue home medication History of TIA Continue home medication DVT ppx: lovenox Full code LOS Discharge Plan: Home Plan to discharge in: 48 Hours - Advance Directives Does patient have a Living Will: No Does patient have a Durable POA for Healthcare: No
--- NOTE | 2023-06-16 10:42 | RAD REPORT ---
EXAM DESCRIPTION: RAD - Chest Single View - 06/16/2023 6:39 am CLINICAL HISTORY: CHEST PAIN COMPARISON: None. TECHNIQUE: XR CHEST 1 VIEW 06/16/2023 5:41 AM CDT FINDINGS: The heart is borderline in size. Lungs are clear without consolidation, atelectasis, mass or edema. There is no pleural effusion. There is no pneumothorax. There are no acute osseous findings . IMPRESSION: Clear lungs. Electronically signed by: Wallace Reyes MD 06/16/2023 06:52 AM CDT Due to temporary technical issues with the PACS/Fluency reporting system, reports are being signed by the in house radiologist without review as a courtesy to ensure prompt reporting. The interpreting r adiologist is fully responsible for the content of the report.
--- NOTE | 2023-06-16 11:39 | P.CNS ---
Date of Consult: 06/16/23 Chief Complaint: SVT cardioverted with adenosine History of Present Illness: Patient with PMH of CAD, HTN, presented with palpitations, EKG shows that he is in SVT converted to sinus rhythm with adensoine IV push, this is the second patient admission for the same reason over a month period, patient cant not really recall triggers, denies any other cardiac symptoms. Allergies No Known Allergies Allergy (Unverified 06/12/23 21:23) Home Medications: Losartan Potassium 25 mg PO DAILY 06/12/23 Metoprolol Succinate [Toprol Xl*] 25 mg PO DAILY 06/12/23 - Past Medical/Surgical History Diabetic: No -: Hypertension, hyperlipidemia, CAD, history of PCI -: Status post stent placements - Family History Father Medical History: Cancer Notes: asbestosis Mother Medical History: Heart disease - Social History Smoking Status: Current some day smoker Alcohol use: Yes CD- Drugs: Yes Caffeine use: Yes Review of Systems 10-point ROS is otherwise unremarkable Physical Examination Temp Pulse Resp BP Pulse Ox 98 F 57 18 142/97 H 06/16/23 10:59 06/16/23 11:09 06/16/23 11:09 06/16/23 11:09 General: Alert, Oriented x3 HEENT: Atraumatic Neck: Supple Respiratory: Clear to auscultation bilaterally Cardiovascular: No edema, Normal S1 S2 Gastrointestinal: Normal bowel sounds Laboratory Data (last 24 hrs) 06/16/23 06/16/23 06/16/23 08:50 08:50 08:06 WBC 7.50 Hgb 13.0 L Hct 38.9 L Plt Count 191 PT 11.2 INR 1.02 Sodium 141 Potassium 3.7 BUN 23 H Creatinine 1.11 Glucose 116 H Magnesium 2.3 Total Bilirubin 0.5 AST 26 ALT 42 Alkaline Phosphatase 82 - Problems (1) SVT (supraventricular tachycardia) Current Visit: Yes Status: Acute Plan: Patient cardioverted into SR with IV adenosine push Start patient on Flecanide 50 mg PO BID Continue Toprol XL 25 mg po BID EKG in am Echo (2) HLD (hyperlipidemia) Current Visit: No Status: Acute Plan: get lipid panel. (3) HTN (hypertension) Current Visit: No Status: Acute Plan: continue toprol XL 25 mg po BID continue Losartan
[2023-06-16 12:04] VITALS: BMI 22.8
[2023-06-16] MEDS: FLECAINIDE 100 MG TAB PO SCH (12:19)
[2023-06-16] MEDS: POTASSIUM CL SA 10 MEQ TAB PO ONE (15:52)
[2023-06-16] MEDS: METOPROLOL TARTRATE 5 MG/5 ML INJ IV PRN (22:46)
[2023-06-17] MEDS: KETOROLAC 30 MG/ML INJ IV ONE (02:43)
[2023-06-17] MEDS: METOPROLOL XL 25 MG TAB PO SCH (06:05)
[2023-06-17 06:36] LABS: Absolute Eosinophils 0.2 K/uL (0-0.5); Absolute Lymphocytes (CBC) 2.2 K/uL (0.7-4.9); Absolute Monocytes 0.6 K/uL (0.1-1.3); Absolute Neutrophil 5.2 K/uL (1.8-8.0); Basophils % 0.4 % (0-1.3); Eosinophils % 2.3 % (0-4.4); Hematocrit 36.9 % (39.6-49.0); Hemoglobin 12.6 g/dL (13.6-17.9); Lymphocytes % 26.5 % (15.3-44.8); MCH 32.6 pg (27.0-35.0); MCV 95.7 fL (80-100); MPV 9.4 fL (7.6-11.3); Monocytes % 7.8 % (3.3-12.3); Nucleated Red Blood Cells % 0.2 % (0-0); Platelets 189 thou/uL (152-406); RBC Red Blood Cell Count 3.86 M/uL (4.33-5.43); Red Cell Distribution Width 13.5 % (12.1-15.2)
[2023-06-17 06:55] LABS: Anion Gap 7.1 mEq/L (5.0-15.0); Magnesium 2.1 mg/dL (1.6-2.4); Phosphorus 3.9 mg/dL (2.5-4.9); Potassium 4.1 mEq/L (3.5-5.1)
[2023-06-17] MEDS: LOSARTAN POTASSIUM 50 MG TABLET PO SCH (07:48)
[2023-06-17] MEDS: ENOXAPARIN 40 MG/0.4 ML SQ SCH (07:48)
[2023-06-17 12:23] VITALS: O2SAT 100
--- NOTE | 2023-06-17 14:27 | P.PN ---
Subjective Date of Service: 06/17/23 Chief Complaint: SVT cardioverted with adenosine Subjective: No new changes Review of Systems 10-point ROS is otherwise unremarkable Physical Examination - Vital Signs Temperature: 97.3 F Blood Pressure: 155/86 Pulse: 57 Respirations: 18 Pulse Ox (%): 99 - Physical Exam General: Alert, Oriented x3 HEENT: Atraumatic Neck: Supple Respiratory: Clear to auscultation bilaterally Cardiovascular: No edema, Normal S1 S2 Gastrointestinal: Normal bowel sounds Assessment And Plan - Current Problems (Diagnosis) (1) SVT (supraventricular tachycardia) Current Visit: Yes Status: Acute Plan: Patient cardioverted into SR with IV adenosine push, had another run overnight that responded to IV metoprolol Continue Flecanide 50 mg PO BID Continue Toprol XL 25 mg po BID ASA 81 mg daily. (2) HLD (hyperlipidemia) Current Visit: No Status: Acute Plan: LDL and total cholestrol is normal Continue to monitor periodically. (3) HTN (hypertension) Current Visit: No Status: Acute Plan: continue toprol XL 25 mg po BID continue Losartan
[2023-06-17 16:33] VITALS: BP 161/71; TEMP 97.7
--- NOTE | 2023-06-17 20:21 | P.DS ---
Admission Date: 06/16/23 Discharge Date: 06/17/23 Disposition: ROUTINE DISCHARGE Discharge Condition: GOOD Reason for Admission: SVT cardioverted with adenosine Brief History of Present Illness: Diagnosis Symptomatic Arrhythmia, SVT History HTN CAD status post PCI and stent Hypercholesterolemia History of TIA HPI 06/16/23 Raphael Groves is a 72 year old male with Pmhx of Hypercholesterolemia, Hypertensive disorder, CAD status post PCI and stent, and TIA who presents to the ED with chief complaint of generalized weakness and elevated heart rate. He reports seeing cardiology in [place], he is visiting his friend in the area and will not be back to [place] for a few weeks. Upon arrival to the ED his heart rate was 150 requiring adenosine push, he tolerated well and converted to sinus rhythm. On evaluation heart rate is 63. Of note, he was previously admitted on 06/12/2023 for heart palpitations and discharged 06/13/2023 per his request. 06/12 EKG showing EF 30%, mild mitral and tricuspid regurgitation, mild aortic insufficiency, severe pulmonary hypertension with right ventricular systolic pressure greater than 60. Initial vitals BP 108 / 91; Pulse 156; Resp 18; Temp 98; Pulse Ox 100% Laboratory evaluation BUN/creatinine 23/1.11, GFR 71, serum glucose 116, troponin 36.9/31.5, BNP 1540 Chest x-ray reports "The heart is borderline in size. Lungs are clear without consolidation, atelectasis, mass or edema. There is no pleural effusion. There is no pneumothorax. There are no acute osseous findings. IMPRESSION: Clear lungs" Raphael will be admitted to hospital service for further evaluation, responded well to treatment of SVT in the ED, Dr. Bowie consulted. Hospital Course: Raphael Groves is a pleasant 73 year old male with a past medical history sig nificant for Hypercholesterolemia, Hypertensive disorder, CAD status post PCI and stent, and TIA who was admitted to the [facility] on 06/16/23 for symptomatic arrhythmia, SVT. Raphael Groves presented to the ED with chief complaint generalized weakness and elevated heart rate. Upon arrival to the ED his heart rate was greater than 150 requiring adenosine push. He tolerated well and converted to sinus rhythm. Cardiology was consulted and started new medication, flecainide. He responded well to flecainide, tachycardia last night has resolved. He continues to be hemodynamically stable. He is tolerating p.o. diet, ambulating independently without dizziness, no chest pain or shortness of breath, and conversing well. On 06/17/2023, Raphael was seen on morning rounds and deemed medically stable for discharge. Raphael was discharged with instructions to schedule follow-up appointments with PCP and Dr. Bowie. Raphael was provided prescriptions for flecainide, metoprolol, and losartan. The patient was given the opportunity to ask questions and reported no further questions. Furthermore, all questions were answered to the best of my ability. A copy of this discharge summary will be sent to the above providers to facilitate continuity of care. Physical Exam General: Alert and oriented x 3, NAD HEENT: Atraumatic, Normocephalic, PERRLA Neck: Supple, 2+ carotid pulse no bruit, JVD not distended Respiratory: Bilaterally clear breath sounds, symmetrical chest wall movement Cardiovascular: No edema, Normal pulses, RRR, Normal S1 S2 Capillary refill: <2 Seconds Gastrointestinal: Normal bowel sounds, Soft and benign Musculoskeletal: No swelling, No contractures Integumentary: No rashes Neurological: Normal speech, Normal strength at 5/5 x4 extr Vital Signs/Physical Exam: Temp Pulse Resp BP Pulse Ox 97.7 F 75 17 161/71 H 100 06/17/23 16:00 06/17/23 16:00 06/17/23 16:00 06/17/23 16:00 06/17/23 16:00 Laboratory Data at Discharge: WBC 8.30 thou/uL (4.3-10.9) 06/17/23 06:20 Hgb 12.6 g/dL (13.6-17.9) L 06/17/23 06:20 Hct 36.9 % (39.6-49.0) L 06/17/23 06:20 Plt Count 189 thou/uL (152-406) 06/17/23 06:20 PT 11.2 SECONDS (9.5-12.5) 06/16/23 08:50 INR 1.02 06/16/23 08:50 Sodium 140 mEq/L (136-145) 06/17/23 06:20 Potassium 4.1 mEq/L (3.5-5.1) 06/17/23 06:20 BUN 20 mg/dL (7-18) H 06/17/23 06:20 Creatinine 1.07 mg/dL (0.70-1.30) 06/17/23 06:20 Glucose 110 mg/dL (74-106) H 06/17/23 06:20 Phosphorus 3.9 mg/dL (2.5-4.9) 06/17/23 06:20 Magnesium 2.1 mg/dL (1.6-2.4) 06/17/23 06:20 Total Bilirubin 0.5 mg/dL (0.2-1.0) 06/16/23 08:06 AST 26 U/L (15-37) 06/16/23 08:06 ALT 42 U/L (16-61) 06/16/23 08:06 Alkaline Phosphatase 82 U/L (45-117) 06/16/23 08:06 Triglycerides 50 mg/dL (<150) 06/17/23 06:20 Cholesterol 130 mg/dL (<200) 06/17/23 06:20 HDL Cholesterol 53 mg/dL (40-60) 06/17/23 06:20 Cholesterol/HDL Ratio 2.45 06/17/23 06:20 Home Medications: Flecainide [Tambocor*] 50 mg PO BID 30 Days #30 tab 06/17/23 Losartan Potassium 25 mg PO DAILY 30 Days #15 06/17/23 Metoprolol Succinate [Toprol Xl*] 25 mg PO DAILY #30 tab 06/17/23 New Medications: Losartan Potassium 25 mg PO DAILY 30 Days #15 Flecainide [Tambocor*] 50 mg PO BID 30 Days #30 tab Metoprolol Succinate [Toprol Xl*] 25 mg PO DAILY #30 tab Physician Discharge Instructions: Raphael Groves presented to the ED with chief complaint generalized weakness and elevated heart rate. Upon arrival to the ED his heart rate was greater than 150 requiring adenosine push. He tolerated well and converted to sinus rhythm. Cardiology was consulted and started new medication, flecainide. He responded well to flecainide, tachycardia last night has resolved. He continues to be hemodynamically stable. 1. Please call and schedule a follow-up appointment with your PCP in 3-5 days - Please follow-up with your PCP for medication refills/adjustments 2. Please call and schedule a follow-up appointment with Dr. Bowie in one week, or see your personal laborer plumbing if you are going to be in [place] in one week. 3. Continue heart healthy diet 4. activity restrictions, ambulate with caution using safety, be aware if dizzy when standing 5. Return to the ED if symptoms worsen New and prescribed medications Flecainide 50 mg p.o. twice daily x 30 daysfollow-up with cardiology for continued medication management Metoprolol 25 mg p.o. daily x 30 daysfollow-up with cardiology for continued medication management Losartan 25 mg p.o. daily x 30 daysfollow-up with cardiology for continued medication management Diet: AHA Activity: Ad joan Followup: Sergio Bowie MD [ACTIVE - CAN ADMIT] - 1 Week (call to schedule an appointment) BOSTON MEAD [Primary Care Provider] - (follow up in 3-5 days)
--- NOTE | 2023-06-20 13:29 | EKG ---
Test Date: 2023-06-16 Test Time: 22:44:56 Senior Physical Therapist: 35 MEASUREMENT RESULTS: Intervals: Rate: 137 MD: QRSD: 96 QT: 340 QTc: 513 [place]: P: MD: QRS: -55 T: 90 INTERPRETIVE STATEMENTS: Supraventricular tachycardia Left axis deviation Voltage criteria for left ventricular hypertrophy Nonspecific ST and T wave abnormality Abnormal ECG Compared to ECG 06/13/2023 12:23:09 Left-axis deviation now present ST (T wave) deviation now present Atrial flutter no longer present Left anterior fascicular block no longer present Myocardial infarct finding no longer present Electronically Signed On 06-20-23 13:19:48 CDT by Harris Gardner
--- NOTE | 2023-06-20 13:33 | EKG ---
Test Date: 2023-06-16 Test Time: 06:01:08 [employer]bel Crm Developer: RV MEASUREMENT RESULTS: Intervals: Rate: 64 LA: 172 QRSD: 86 QT: 418 QTc: 431 [place]: P: 58 LA: 172 QRS: -45 T: 85 INTERPRETIVE STATEMENTS: Normal sinus rhythm Left anterior fascicular block Voltage criteria for left ventricular hypertrophy Abnormal ECG Compared to ECG 06/16/2023 05:48:00 Supraventricular tachycardia no longer present T-wave abnormality no longer present Possible ischemia no longer present Electronically Signed On 06-20-23 13:20:55 CDT by Harris Gardner
--- NOTE | 2023-06-20 13:33 | EKG ---
Test Date: 2023-06-16 Test Time: 05:48:00 Ergonomics Technician: RV MEASUREMENT RESULTS: Intervals: Rate: 155 SD: QRSD: 100 QT: 308 QTc: 494 [place]: P: SD: QRS: -46 T: 99 INTERPRETIVE STATEMENTS: Supraventricular tachycardia Left anterior fascicular block Voltage criteria for left ventricular hypertrophy T wave abnormality, consider lateral ischemia Abnormal ECG Compared to ECG 06/13/2023 12:23:09 T-wave abnormality now present Possible ischemia now present Atrial flutter no longer present Myocardial infarct finding no longer present Electronically Signed On 06-20-23 13:20:57 CDT by Harris Gardner
== END 2023-06-17 19:15 | disposition home or self-care (01) ==
LOC: ER 05:37 → ERHOLD 09:22 → 4TH 10:49
PROVIDERS: ADMIT Hospitalist; ATTEND Hospitalist
DX: I47.10 Supraventricular tachycardia, unspecified (principal); I25.10 Atherosclerotic heart disease of native coronary artery without angina pectoris; R55 Syncope and collapse; R53.1 Weakness; E78.00 Pure hypercholesterolemia, unspecified; I10 Essential (primary) hypertension; E78.5 Hyperlipidemia, unspecified; F17.210 Nicotine dependence, cigarettes, uncomplicated; Z95.5 Presence of coronary angioplasty implant and graft; Z86.73 Personal history of transient ischemic attack (TIA), and cerebral infarction without residual deficits
CPT/HCPCS: 92960; 96365; 96361; 85025 ×2; 80048 ×2; 36415; 83735 ×2; 84100; 85610; 80061; 80076; 84443; 84484 ×3; 83880; 71045; 96375; 99285; 96366; J0153; J3475; J1650; J2405; J7030 ×2; G0378 ×4; 93005